=== PATIENT | female | born 1970 | race Caucasian/White ===

== ENCOUNTER 2018-03-07 18:41 | Inpatient (IN) ==
--- NOTE | 2018-03-07 19:20 | Emergency Department Note ---
Disposition Clinical Impression: Hx of heart valve replacement with mechanical valve, Subtherapeutic anticoagulation Disposition: Admitted As Inpatient Condition: Good Time of Disposition: 20:11 General Adult HPI - General Chief complaint: ED Recheck/Abnormal Lab/Rx Stated complaint: sent from doctor brittany Time Seen by Provider: 03/07/18 19:04 Source: patient Limitations: no limitations Nursing Notes Reviewed: Yes Vital Signs Reviewed: Yes - History of Present Illness HPI Narrative: Patient is a 47-year-old female who presents to the emergency department after finding out that her INR was 1.5. Patient has a history of 2 mechanical valves and the sales program coordinator felt that her INR was nontherapeutic and wanted her to be admitted to the hospital for further anticoagulation. Patient states that she is asymptomatic and just needs to be admitted to the hospital so she can get heparin and Coumadin. Pain Scale: 5 - Related Data Home Medications Medication Instructions Recorded Confirmed Aspirin [Adult Low Dose Aspirin EC] 81 mg PO DAILY 12/26/15 03/07/18 Baclofen 20 mg PO QID 12/26/15 03/07/18 Escitalopram [Lexapro] 10 mg PO QAM 12/26/15 03/07/18 Gabapentin [Neurontin] 900 mg PO HS 12/26/15 03/07/18 Hydromorphone HCl [Dilaudid] 2 mg PO QID PRN 12/26/15 03/07/18 LORazepam [Ativan] 1 mg PO QID 12/26/15 03/07/18 Melatonin [Melatin] 3 mg PO HS PRN 06/06/16 03/07/18 Amiodarone [Cordarone] 200 mg PO QAM 07/22/16 03/07/18 Warfarin [Coumadin] 5 mg PO SUSA 07/28/16 03/07/18 Diphenoxylate/Atropine [Lomotil 1 each PO QID PRN 08/18/16 03/07/18 2.5 mg/0.025 mg] Lurasidone [Latuda] 20 mg PO QPM 05/19/17 03/07/18 Bupropion HCl [Wellbutrin Xl] 300 mg PO DAILY 12/06/17 03/07/18 Dicyclomine [Bentyl] 10 mg PO QID PRN 12/06/17 03/07/18 Ondansetron [Zofran ODT] 8 mg SL Q4HR PRN 12/06/17 03/07/18 Albuterol Sulfate [Ventolin Hfa] 2 puff IH Q4H PRN 03/07/18 03/07/18 LORazepam [Ativan] 0.5 - 1 mg PO DAILY PRN 03/07/18 03/07/18 Pantoprazole Sodium [Protonix] 40 mg PO HS 03/07/18 03/07/18 Warfarin [Coumadin] 7.5 mg PO THFR 03/07/18 03/07/18 Warfarin [Coumadin] 10 mg PO MOTUWE 03/07/18 03/07/18 Previous Rx's Medication Instructions Recorded Metoprolol [Lopressor] 12.5 mg PO BID #30 tablet 08/20/16 Vitamin E Acid Succinate [Vitamin 1 tab PO BID #180 tab 10/20/16 E] Allergies Allergy/AdvReac Type Severity Reaction Status Date / Time levofloxacin [From Levaquin] AdvReac Intermediate See Verified 12/06/17 08:34 Comments clarithromycin [From Biaxin] AdvReac See Verified 03/07/18 20:19 Comments All systems ED: reviewed and negative except as stated. Cardiovascular: Denies: chest pain Respiratory: Denies: dyspnea Gastrointestinal: Denies: abdominal pain, nausea, vomiting Past Medical History - Past Medical History Medical history: Reports: other Surgical history: Reports: breast surgery, cholecystectomy, heart valve replacement Psychiatric history: Reports: anxiety, depression - Social History Smoking Status: Current every day smoker Smokeless Tobacco Status: No Alcohol use: Reports: none Drug use: Reports: none Physical Exam - General Limitations: no limitations General appearance: alert, in no apparent distress - Head Head exam: atraumatic, normocephalic - Eye Eye exam: Present: normal appearance, PERRL, EOMI - Neck Neck exam: Present: normal inspection, full ROM, trachea midline - Respiratory Respiratory exam: Present: normal lung sounds bilaterally. Absent: respiratory distress, wheezes - Cardiovascular Cardiovascular exam: Present: regular rate, normal rhythm, systolic murmur - Abdominal Exam Abdominal exam: Present: soft, Non-Tender, normal bowel sounds - Neurological Exam Neurological exam: Present: alert, oriented X3 - Psychiatric Psychiatric exam: Present: normal affect, normal mood - Skin Skin exam: Present: warm, dry, intact Course Vital Signs Temperature 98.4 F 04/09/18 18:54 Pulse Rate 83 03/07/18 18:54 Respiratory Rate 18 03/07/18 18:54 Blood Pressure 111/69 03/07/18 18:54 O2 Sat by Pulse Oximetry 97 03/07/18 18:54 Temperature 97.6 F 03/07/18 20:49 Pulse Rate 73 03/07/18 20:49 Respiratory Rate 17 03/07/18 20:49 Blood Pressure 101/69 03/07/18 20:49 O2 Sat by Pulse Oximetry 97 03/07/18 20:49 Oxygen Delivery Oxygen Delivery Room Air Medical Decision Making - MDM Narrative Medical decision making narrative: Due to the patient being sent over by the sales program coordinator for further anticoagulation and admission to the hospital we will order a CBC, BMP and coagulation studies. Once the coagulation studies have returned we will start the patient on heparin drip and admit her to the hospital for further evaluation and management. The patient's INR was 1.6 and will be started on IV heparin. The patient will be admitted to the hospital for further evaluation and management and to continue her heparin drip. We have called and spoke with the hospitalist and they have accepted the patient to their service. The patient be admitted to the hospital for further evaluation and management at this time. - Medical Records Medical records reviewed: Yes I reviewed the patient's medical records. - Lab Data Lab results reviewed: Yes I reviewed the patient's lab results. Result diagrams: 03/07/18 19:05 03/07/18 19:05 Lab Results 03/07/18 03/07/18 03/07/18 Range/Units 19:05 19:05 19:05 WBC 6.6 (4.3-11.1) K/mcL RBC 4.01 (3.82-4.97) M/mcL Hgb 13.1 (11.5-15.4) g/dL Hct 38.4 (35.3-44.9) % MCV 95.8 (83.0-100.0) fL MCH 32.7 (28.0-33.3) pg MCHC 34.1 (31.6-35.5) g/dL RDW 12.2 (11.5-14.5) % Plt Count 234 (140-400) K/mcL MPV 10.2 (9.4-12.4) fL Immature Gran % 0.2 (0-4) % Seg Neutrophils % 59.6 % Lymphocytes % 27.7 % Monocytes % 6.9 % Eosinophils % 4.7 % Basophils % 0.9 % Neutrophils # 3.9 (1.6-8.9) K/mcL Lymphocytes # 1.8 (0.6-4.6) K/mcL Monocytes # 0.5 (0.0-1.3) K/mcL Eosinophils # 0.3 (0.0-0.6) K/mcL Basophils # 0.1 (0.0-0.2) K/mcL PT 17.0 H (9.4-12.1) Seconds INR 1.6 APTT 33.4 (26.0-36.0) Seconds Sodium 136 (136-145) mEq/L Potassium 4.0 (3.5-5.1) mEq/L Chloride 105 (98-107) mEq/L Carbon Dioxide 25 (23-29) mEq/L BUN 11 (6-20) mg/dL Creatinine 0.93 (0.60-1.20) mg/dL Est GFR ( Amer) > 60 (> 60) Est GFR (Non-Af Amer) > 60 (> 60) BUN/Creatinine Ratio 12 (6-26) Glucose 102 (70-105) mg/dL Calculated Osmolality 282 (280-300) Calcium 8.9 (8.6-10.3) mg/dL Attestation Statement - Attestation Attestation: I examined this patient and my medical decision-making was reviewed with the Resident Physician. I agree with the documented findings, disposition and treatment plan as described except to the extent set forth below. Findings consistent with subtherapeutic INR. Patient will be heparinized, transition to Coumadin. This is done at the request of cardiology. The patient be admitted for anticoagulant management.
[2018-03-07 19:37] LABS: Basophils # 0.1 K/mcL (0.0-0.2); Basophils % 0.9 %; Eosinophils # 0.3 K/mcL (0.0-0.6); Eosinophils % 4.7 %; Hematocrit 38.4 % (35.3-44.9); Hemoglobin 13.1 g/dL (11.5-15.4); Immature Granulocytes % 0.2 % (0-4); Lymphocytes # 1.8 K/mcL (0.6-4.6); Lymphocytes % 27.7 %; Mean Corpuscular HGB Conc 34.1 g/dL (31.6-35.5); Mean Corpuscular Hemoglobin 32.7 pg (28.0-33.3); Mean Corpuscular Volume 95.8 fL (83.0-100.0); Mean Platelet Volume 10.2 fL (9.4-12.4); Monocytes # 0.5 K/mcL (0.0-1.3); Monocytes % 6.9 %; Neutrophils # 3.9 K/mcL (1.6-8.9); Platelet Count 234 K/mcL (140-400); Red Blood Count 4.01 M/mcL (3.82-4.97); Red Cell Distribution Width 12.2 % (11.5-14.5); Segmented Neutrophils % 59.6 %
[2018-03-07 19:43] LABS: INR 1.6
[2018-03-07 19:46] LABS: Activated Partial Thrombo Time 33.4 Seconds (26.0-36.0)
[2018-03-07 19:57] LABS: BUN/Creatinine Ratio 12 (6-26); Blood Urea Nitrogen 11 mg/dL (6-20); Calcium 8.9 mg/dL (8.6-10.3); Carbon Dioxide 25 mEq/L (23-29); Chloride 105 mEq/L (98-107); Glucose 102 mg/dL (70-105); Osmolality,Calculated 282 (280-300); Sodium 136 mEq/L (136-145); eGFR For African Americans > 60 (> 60); eGFR For Non-African Americans > 60 (> 60)
[2018-03-07] MEDS ORDERED: *HR* Heparin 5,000 UNIT/ML VIAL IVP PRN ×2 (19:58)
[2018-03-07] MEDS ORDERED: *HR* Heparin 5,000 UNIT/ML VIAL IVP ONE (19:58)
[2018-03-07] MEDS ORDERED: Diphenoxylate/Atropine 1 TAB TABLET PO PRN (20:51)
[2018-03-07] MEDS ORDERED: Melatonin 3 MG TABLET PO PRN (20:51)
[2018-03-07] MEDS ORDERED: Acetaminophen 325 MG TABLET PO PRN (20:54)
[2018-03-07] MEDS ORDERED: Naloxone 0.4 MG/ML INJ IVP PRN (20:54)
[2018-03-07] MEDS ORDERED: *HR* Warfarin 10 MG TABLET PO SCH ×2 (21:00→21:15)
--- NOTE | 2018-03-07 21:00 | Internal Med History&Physical ---
<Imelda Weinberg - Last Filed: 03/07/18 20:56> Date of Encounter: 03/07/18 Time of Encounter: 20:56 Internal Medicine - H&P: HPI Admitted From: Home Plans for Post Hospital Care: Home History of present illness: Patient is a 47-year-old female who presents to the emergency department after finding out that her INR was 1.5. Patient has a history of 2 mechanical valves and the foreign language interpreter felt that her INR was nontherapeutic and wanted her to be admitted to the hospital for further anticoagulation. Patient states that she is asymptomatic and just needs to be admitted to the hospital so she can get heparin and Coumadin. Past Med Surg Social Fam HX - Past Medical History Medical history: other Psychiatric history: anxiety, depression - Past Surgical History Surgical History: breast surgery, cholecystectomy, heart valve replacement - Social History Smoking Status: Current every day smoker Smokeless Tobacco Status: No Alcohol use: none Drug use: none - Family History Brother Hx Family Endocrine Disorder: Yes (diabeter type 2) Sister Hx Family Cardiac Disorders: Yes (CAD) Mother Hx Family Cardiac Disorders: Yes (HTN) Hx Family Respiratory Disorders: Yes (asthma) Internal Medicine - H&P: Meds Aspirin [Adult Low Dose Aspirin EC] 81 mg PO DAILY 12/26/15 [History] Baclofen 20 mg PO QID 12/26/15 [History] Escitalopram [Lexapro] 10 mg PO QAM 12/26/15 [History] Gabapentin [Neurontin] 900 mg PO HS 12/26/15 [History] Hydromorphone HCl [Dilaudid] 2 mg PO QID PRN 12/26/15 [History] LORazepam [Ativan] 1 mg PO QID 12/26/15 [History] Melatonin [Melatin] 3 mg PO HS PRN 06/06/16 [History] Amiodarone [Cordarone] 200 mg PO QAM 07/22/16 [History] Warfarin [Coumadin] 5 mg PO SUSA 07/28/16 [History] Diphenoxylate/Atropine [Lomotil 2.5 mg/0.025 mg] 1 each PO QID PRN 08/18/16 [ History] Metoprolol [Lopressor] 12.5 mg PO BID #30 tablet 08/20/16 [Rx] Vitamin E Acid Succinate [Vitamin E] 1 tab PO BID #180 tab 10/20/16 [Rx] Lurasidone [Latuda] 20 mg PO QPM 05/19/17 [History] Bupropion HCl [Wellbutrin Xl] 300 mg PO DAILY 12/06/17 [History] Dicyclomine [Bentyl] 10 mg PO QID PRN 12/06/17 [History] Ondansetron [Zofran ODT] 8 mg SL Q4HR PRN 12/06/17 [History] Albuterol Sulfate [Ventolin Hfa] 2 puff IH Q4H PRN 03/07/18 [History] LORazepam [Ativan] 0.5 - 1 mg PO DAILY PRN 03/07/18 [History] Pantoprazole Sodium [Protonix] 40 mg PO HS 03/07/18 [History] Warfarin [Coumadin] 7.5 mg PO THFR 03/07/18 [History] Warfarin [Coumadin] 10 mg PO MOTUWE 03/07/18 [History] 3 Allergy/AdvReac Type Severity Reaction Status Date / Time levofloxacin [From Levaquin] AdvReac Intermediate See Verified 12/06/17 08:34 Comments clarithromycin [From Biaxin] AdvReac See Verified 03/07/18 20:19 Comments All Systems PM: A 10-system review of systems was performed and is negative for pertinent findings except as documented above in the HPI. Review of systems: REVIEW OF SYSTEMS: CONSTITUTIONAL: No weight loss, fever, chills, weakness or fatigue. HEENT: Eyes: No visual loss, blurred vision, double vision or yellow sclerae. Ears, Nose, Throat: No hearing loss, sneezing, congestion, runny nose or sore throat. SKIN: No rash or itching. CARDIOVASCULAR: No chest pain, chest pressure or chest discomfort. No palpitations or edema. RESPIRATORY: No shortness of breath, cough or sputum. GASTROINTESTINAL: No anorexia, nausea, vomiting or diarrhea. No abdominal pain or blood. GENITOURINARY: No dysuria, urgency, or frequency. NEUROLOGICAL: No headache, dizziness, syncope, paralysis, ataxia, numbness or tingling in the extremities. No change in bowel or bladder control. MUSCULOSKELETAL: No muscle, back pain, joint pain or stiffness. HEMATOLOGIC: No anemia, bleeding or bruising. LYMPHATICS: No enlarged nodes. No history of splenectomy. PSYCHIATRIC: No history of depression or anxiety. ENDOCRINOLOGIC: No reports of sweating, cold or heat intolerance. No polyuria or polydipsia. - Constitutional Vitals: Temp Pulse Resp BP Pulse Ox 97.6 F 73 17 101/69 97 03/07/18 20:49 03/07/18 20:49 03/07/18 20:49 03/07/18 20:49 03/07/18 20:49 Exam: PHYSICAL EXAMINATION: GENERAL APPEARANCE: The patient is alert, oriented and in no acute distress. HEENT: Head is normocephalic. The sinuses are nontender. Pupils are equal and reactive. The nares are patent. Oropharynx clear without lesions. NECK: Supple without lymphadenopathy. HEART: Regular rate and rhythm. systolic murmur noted at LUNGS: No crackles or wheezes are heard. ABDOMEN: Soft, nontender, nondistended with good bowel sounds heard. Inguinal area is normal. EXTREMITIES: Without cyanosis, clubbing or edema. NEUROLOGICAL: Gross nonfocal. SKIN: Warm and dry without any rash. 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 - Hx of prosthetic valve and Marfan's disease. - Heparin gtt started, continue home coumadin. - consult pharmacy to dose Coumadin. - Time Spent With Patient Total time spent is greater than 50% in coordination of care (as documented) at patient's floor/unit and/or counseling patient: Greater than 35 minutes <Richard Del Angel - Last Filed: 03/07/18 23:32> Date of Encounter: 03/07/18 Internal Medicine - H&P: HPI History of present illness: Ms. Albert is a 47 year old female All Systems PM: A 10-system review of systems was performed and is negative for pertinent findings except as documented above in the HPI. - Constitutional Vitals: Temp Pulse Resp BP Pulse Ox 97.6 F 73 17 101/69 97 03/07/18 20:49 03/07/18 20:49 03/07/18 20:49 03/07/18 20:49 03/07/18 20:49 Internal Med - H&P Results - Labs CBC & Chem 7: 03/07/18 19:05 03/07/18 19:05 - Attending Attestation I have personally performed a face to face evaluation on this patient. I have reviewed and agree with the care plan provided by TONY Weinberg . History and Exam by me shows: Patient is a 47-year-old female with known PMH of Marfan's syndrome s/p mechanical valve x 2, who is on Coumadin for anticoagulation pt presents to the emergency department after finding out that her INR was 1.5. The foreign language interpreter felt that her INR was sub therapeutic and wanted her to be admitted to the hospital for further anticoagulation with heparin until she becomes therapeutic. She denied any CP / SOB Gen: A,A,O x 3 Chest: Diminished BS b/l Heart: S1S2 + RRR, 2/6 ESM a/p 1. Sub therapeutic INR 2. s/p Mechanical valve Started on standard dose heparin gtt bridge with Coumadin - Assessment and plan (1) Marfans syndrome Current Visit: No Status: Chronic (2) H/O aortic valve replacement Current Visit: No Status: Chronic (3) H/O mitral valve replacement with mechanical valve Current Visit: No Status: Chronic (4) Subtherapeutic anticoagulation Current Visit: Yes Status: Acute - Time Spent With Patient Total time spent is greater than 50% in coordination of care (as documented) at patient's floor/unit and/or counseling patient:
[2018-03-07] MEDS: *HR* LORazepam 1 MG TABLET PO SCH (21:59)
[2018-03-07] MEDS: *HR* HYDROmorphone 2 MG TABLET PO PRN (21:59)
[2018-03-07] MEDS: Baclofen 10 MG TABLET PO SCH (22:00)
[2018-03-07] MEDS: Gabapentin 300 MG CAPSULE PO SCH (22:04)
[2018-03-08 07:05] LABS: Activated Partial Thrombo Time 75.4 Seconds (26.0-36.0)
[2018-03-08] MEDS: *HR* Amiodarone 200 MG TABLET PO SCH (08:29)
[2018-03-08] MEDS: *HR* LORazepam 1 MG TABLET PO SCH ×4 (08:29→20:23)
[2018-03-08] MEDS: BuPROPion XL (24 HR) 150 MG TABLET PO SCH (08:30)
[2018-03-08] MEDS: Aspirin Enteric Coated 81 MG Tablet PO SCH (08:30)
[2018-03-08] MEDS: Baclofen 10 MG TABLET PO SCH ×4 (08:30→20:23)
[2018-03-08 08:39] LABS: INR 1.5; Prothrombin Time 16.8 Seconds (9.4-12.1)
[2018-03-08] MEDS ORDERED: Warfarin perPT PO PRN (12:07)
[2018-03-08] MEDS: Ondansetron ODT 4 MG TAB.RAPDIS SL PRN (12:14)
[2018-03-08] MEDS: *HR* HYDROmorphone 2 MG TABLET PO PRN ×2 (14:21→20:59)
--- NOTE | 2018-03-08 15:09 | Internal Med Progress Note ---
Date of Encounter: 03/08/18 Time of Encounter: 15:08 - Assessment and plan (1) Subtherapeutic anticoagulation Current Visit: Yes Status: Acute Assessment and plan: - Has been on coumadin for years and never been truly therapeutic. - Hx of prosthetic valve and Marfan's disease. - Heparin gtt started, continue home coumadin. - pharmacy to dose Coumadin. (2) H/O aortic valve replacement Current Visit: No Status: Chronic (3) H/O mitral valve replacement with mechanical valve Current Visit: No Status: Chronic (4) Marfans syndrome Current Visit: No Status: Chronic - Time Spent With Patient Total time spent is greater than 50% in coordination of care (as documented) at patient's floor/unit and/or counseling patient: - Subjective Interval history: She has no complaints. - Constitutional Vitals: Temp Pulse Resp BP Pulse Ox 98.3 F 61 17 129/73 96 03/08/18 07:50 03/08/18 07:50 03/08/18 07:50 03/08/18 07:50 03/08/18 07:50 General appearance: Present: A&O X 3 Exam: PHYSICAL EXAMINATION: GENERAL APPEARANCE: The patient is alert, oriented and in no acute distress. HEENT: Head is normocephalic. The sinuses are nontender. Pupils are equal and reactive. The nares are patent. Oropharynx clear without lesions. NECK: Supple without lymphadenopathy. HEART: systolic murmur at the left base. LUNGS: No crackles or wheezes are heard. ABDOMEN: Soft, nontender, nondistended with good bowel sounds heard. Inguinal area is normal. EXTREMITIES: Without cyanosis, clubbing or edema. NEUROLOGICAL: Gross nonfocal. SKIN: Warm and dry without any rash. Internal Medicine: Result - Labs CBC & Chem 7: 03/07/18 19:05 03/07/18 19:05 - ABG Interpretation ABG results: PT/INR, D-dimer PT 16.8 Seconds (9.4-12.1) H 03/08/18 06:28 Consult Discharge Plan - Plan Referrals: Dean Salazar DO [Primary Care Provider] -
[2018-03-08] MEDS: Lurasidone 20 MG TABLET PO SCH (17:08)
[2018-03-08] MEDS ORDERED: *HR* Warfarin 10 MG TABLET PO ONE (18:00)
[2018-03-08] MEDS: Gabapentin 300 MG CAPSULE PO SCH (20:23)
--- NOTE | 2018-03-08 23:50 | Electrocardiograph Report ---
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
[2018-03-08] MEDS: Heparin 25,000 UNIT/500 ML D5W 25,000 UNIT/500 ML BAG IVC SCH ×2 (23:51)
[2018-03-09 02:24] LABS: INR 1.3; Prothrombin Time 14.3 Seconds (9.4-12.1)
[2018-03-09 02:27] LABS: Activated Partial Thrombo Time 59.8 Seconds (26.0-36.0)
[2018-03-09] MEDS: *HR* HYDROmorphone 2 MG TABLET PO PRN ×3 (08:05→21:12)
[2018-03-09] MEDS: Aspirin Enteric Coated 81 MG Tablet PO SCH (08:05)
[2018-03-09] MEDS: *HR* LORazepam 1 MG TABLET PO SCH ×4 (08:05→21:12)
[2018-03-09] MEDS: *HR* Amiodarone 200 MG TABLET PO SCH (08:06)
[2018-03-09] MEDS: Baclofen 10 MG TABLET PO SCH ×4 (08:06→21:12)
[2018-03-09] MEDS: BuPROPion XL (24 HR) 150 MG TABLET PO SCH (08:06)
[2018-03-09] MEDS ORDERED: *HR* LORazepam 0.5 MG TABLET PO ONE (10:40)
--- NOTE | 2018-03-09 12:39 | Internal Med Progress Note ---
Date of Encounter: 03/09/18 Time of Encounter: 12:38 - Assessment and plan (1) Subtherapeutic anticoagulation Current Visit: Yes Status: Acute Assessment and plan: - Has been on coumadin for years and never been truly therapeutic. - Hx of prosthetic valve and Marfan's disease. - Heparin gtt started, continue home coumadin. INR 1.3 today. - pharmacy to dose Coumadin. (2) H/O aortic valve replacement Current Visit: No Status: Chronic (3) H/O mitral valve replacement with mechanical valve Current Visit: No Status: Chronic (4) Marfans syndrome Current Visit: No Status: Chronic - Time Spent With Patient Total time spent is greater than 50% in coordination of care (as documented) at patient's floor/unit and/or counseling patient: - Subjective Interval history: She has no complaints. - Constitutional Vitals: Temp Pulse Resp BP Pulse Ox 98.2 F 71 16 130/77 97 03/09/18 06:40 03/09/18 06:40 03/09/18 06:40 03/09/18 06:40 03/09/18 06:40 General appearance: Present: A&O X 3 Exam: PHYSICAL EXAMINATION: GENERAL APPEARANCE: The patient is alert, oriented and in no acute distress. HEENT: Head is normocephalic. The sinuses are nontender. Pupils are equal and reactive. The nares are patent. Oropharynx clear without lesions. NECK: Supple without lymphadenopathy. HEART: Regular rate and rhythm. LUNGS: No crackles or wheezes are heard. ABDOMEN: Soft, nontender, nondistended with good bowel sounds heard. Inguinal area is normal. EXTREMITIES: Without cyanosis, clubbing or edema. NEUROLOGICAL: Gross nonfocal. SKIN: Warm and dry without any rash. Internal Medicine: Result - Labs CBC & Chem 7: 03/07/18 19:05 03/07/18 19:05 - ABG Interpretation ABG results: PT/INR, D-dimer PT 14.3 Seconds (9.4-12.1) H 03/09/18 01:44 Consult Discharge Plan - Plan Referrals: Dean Salazar DO [Primary Care Provider] -
[2018-03-09] MEDS: Nicotine 14 MG PATCH.TD24 TD SCH (13:51)
[2018-03-09] MEDS: Ondansetron ODT 4 MG TAB.RAPDIS SL PRN (14:08)
[2018-03-09] MEDS: Lurasidone 20 MG TABLET PO SCH (17:20)
[2018-03-09] MEDS ORDERED: *HR* Warfarin 10 MG TABLET PO ONE (18:00)
[2018-03-09] MEDS ORDERED: *HR* LORazepam 0.5 MG TABLET PO PRN (18:09)
[2018-03-09] MEDS ORDERED: *HR* LORazepam 1 MG TABLET PO PRN (18:10)
[2018-03-09] MEDS: Gabapentin 300 MG CAPSULE PO SCH (21:12)
[2018-03-09] MEDS: Heparin 25,000 UNIT/500 ML D5W 25,000 UNIT/500 ML BAG IVC SCH (21:41)
[2018-03-10 03:24] LABS: INR 1.6; Prothrombin Time 17.3 Seconds (9.4-12.1)
[2018-03-10] MEDS: *HR* HYDROmorphone 2 MG TABLET PO PRN ×3 (08:41→19:50)
[2018-03-10] MEDS: BuPROPion XL (24 HR) 150 MG TABLET PO SCH (08:41)
[2018-03-10] MEDS: Nicotine 14 MG PATCH.TD24 TD SCH (08:41)
[2018-03-10] MEDS: *HR* LORazepam 1 MG TABLET PO SCH ×4 (08:42→19:46)
[2018-03-10] MEDS: *HR* Amiodarone 200 MG TABLET PO SCH (08:42)
[2018-03-10] MEDS: Aspirin Enteric Coated 81 MG Tablet PO SCH (08:42)
[2018-03-10] MEDS: Baclofen 10 MG TABLET PO SCH ×4 (08:42→19:44)
[2018-03-10] MEDS: Ondansetron ODT 4 MG TAB.RAPDIS SL PRN ×2 (09:15→13:44)
[2018-03-10] MEDS: *HR* LORazepam 0.5 MG TABLET PO PRN ×2 (09:15→21:31)
--- NOTE | 2018-03-10 11:01 | Event Note ---
Date of Encounter: 03/10/18 Time of Encounter: 10:45 - Cardiology Event Note Notification received from cardiology office indicating patient called our office from inpatient room with concerns of her Coumadin regimen and dosing-- patient well known to cardiology practice. Patient requested for cardiology to come talk with patient. No official consult noted from primary service. Patient reports had been taking Coumadin 7.5 mg by mouth daily at home and has received 10 mg past 3 evenings with pending dose of 7.5 mg pending today. Current INR 1.6. On IV heparin drip for bridging. Target INR 2.5-3.5. Discussed with [facility]-- Santy Noel, her primary pharmacist managing her outpatient INR as directed by Dr. Dalton-- he will connect with inpatient pharmacy to assist inpatient pharmacy with her dosing regimen since he is intimately aware of her INR history/trend. Anticipate may receive higher Coumadin dose this evening. All questions answered, patient verbalized understanding and very appreciative that cardiology aware of her status. Recs to continue IV Hep. gtt bridge until therapeutic. Please feel free to consult Cardiology if clinically warranted.
[2018-03-10] MEDS: Lurasidone 20 MG TABLET PO SCH (17:31)
--- NOTE | 2018-03-10 17:53 | Internal Med Progress Note ---
Date of Encounter: 03/10/18 Time of Encounter: 17:52 - Assessment and plan (1) Subtherapeutic anticoagulation Current Visit: Yes Status: Acute Assessment and plan: - Has been on coumadin for years and never been truly therapeutic. - Hx of prosthetic valve and Marfan's disease. - Heparin gtt started, continue home coumadin. INR 1.6 today. - pharmacy to dose Coumadin. (2) H/O aortic valve replacement Current Visit: No Status: Chronic (3) H/O mitral valve replacement with mechanical valve Current Visit: No Status: Chronic (4) Marfans syndrome Current Visit: No Status: Chronic - Time Spent With Patient Total time spent is greater than 50% in coordination of care (as documented) at patient's floor/unit and/or counseling patient: Greater than 35 minutes - Subjective Interval history: She has no complaints. - Constitutional Vitals: Temp Pulse Resp BP Pulse Ox 97.9 F 63 18 114/71 97 03/10/18 06:42 03/10/18 06:42 03/10/18 06:42 03/10/18 06:42 03/10/18 06:42 General appearance: Present: A&O X 3 Exam: PHYSICAL EXAMINATION: GENERAL APPEARANCE: The patient is alert, oriented and in no acute distress. HEENT: Head is normocephalic. The sinuses are nontender. Pupils are equal and reactive. The nares are patent. Oropharynx clear without lesions. NECK: Supple without lymphadenopathy. HEART: Regular rate and rhythm. LUNGS: No crackles or wheezes are heard. ABDOMEN: Soft, nontender, nondistended with good bowel sounds heard. Inguinal area is normal. EXTREMITIES: Without cyanosis, clubbing or edema. NEUROLOGICAL: Gross nonfocal. SKIN: Warm and dry without any rash. Internal Medicine: Result - Labs CBC & Chem 7: 03/07/18 19:05 03/07/18 19:05 - ABG Interpretation ABG results: PT/INR, D-dimer PT 17.3 Seconds (9.4-12.1) H 03/10/18 03:07 - VTE Documentation of Mechanical Device: Graduated compression elastic hosiery Consult Discharge Plan - Plan Referrals: Dean Salazar DO [Primary Care Provider] -
[2018-03-10] MEDS ORDERED: *HR* Warfarin 2.5 MG TABLET PO ONE (18:00)
[2018-03-10] MEDS ORDERED: *HR* Warfarin 7.5 MG TABLET PO SCH (18:00)
[2018-03-10] MEDS ORDERED: *HR* Warfarin 7.5 MG TABLET PO ONE (18:00)
[2018-03-10] MEDS ORDERED: *HR* Warfarin 10 MG TABLET PO ONE ×2 (18:00)
[2018-03-10] MEDS: Gabapentin 300 MG CAPSULE PO SCH (19:43)
[2018-03-10] MEDS: Heparin 25,000 UNIT/500 ML D5W 25,000 UNIT/500 ML BAG IVC SCH (19:58)
[2018-03-11 03:08] LABS: Prothrombin Time 21.9 Seconds (9.4-12.1)
[2018-03-11 07:26] VITALS: BP 117/72
[2018-03-11] MEDS: Nicotine 14 MG PATCH.TD24 TD SCH (07:52)
[2018-03-11] MEDS: Aspirin Enteric Coated 81 MG Tablet PO SCH (07:52)
[2018-03-11] MEDS: Baclofen 10 MG TABLET PO SCH (07:53)
[2018-03-11] MEDS: BuPROPion XL (24 HR) 150 MG TABLET PO SCH (07:53)
[2018-03-11] MEDS: *HR* LORazepam 1 MG TABLET PO SCH (07:53)
[2018-03-11] MEDS: *HR* Amiodarone 200 MG TABLET PO SCH (07:53)
--- NOTE | 2018-03-11 10:21 | Discharge Summary ---
- NOTES TO OUTPATIENT PROVIDER Notes to Outpatient Provider: f/u with Coumadin Clinic within one day. F/u with Cardiology within a week,. f/u with PCP within a week. Orders not resulted at time of discharge: Pending orders 03/12/18 03:35 PTT [Activated Partial Thrombo Time] [COAG] Timed 03/12/18 04:00 PT/INR [Prothrombin Time INR] [COAG] AM 0400 03/13/18 04:00 PT/INR [Prothrombin Time INR] [COAG] AM 0400 03/14/18 04:00 PT/INR [Prothrombin Time INR] [COAG] AM 0400 03/15/18 04:00 PT/INR [Prothrombin Time INR] [COAG] AM 0400 03/16/18 04:00 PT/INR [Prothrombin Time INR] [COAG] AM 0400 Date of Encounter: 03/11/18 Time of Encounter: 10:16 - Discharge Diagnosis (1) Subtherapeutic anticoagulation Priority: Primary Status: Acute (2) H/O aortic valve replacement Priority: Secondary Status: Chronic (3) H/O mitral valve replacement with mechanical valve Priority: Secondary Status: Chronic (4) Marfans syndrome Priority: Secondary Status: Chronic Hospital course: Ms. Albert is a 47 year old female with history of Marfan's syndrome, aortic valve replacement, and a mitral valve replacement who was on chronic anticoagulation presented with subtherapeutic INR. She was sent from her complementary health therapists's office. [employer] was concerned that her INR was subtherapeutic for a long time, although she usually follows up with Coumadin clinic. She was started on heparin drip and bridged to Coumadin. After 4 days of oral Coumadin, her INR was 2.0 today. He will be discharged home today. She will continue follow-up with Coumadin clinic as usual. He was instructed to take 10 mg Coumadin daily until dose further was adjusted based on daily INR. Discharge discussed with: patient Time spent discussing smoking cessation with patient: more than 10 minutes - Time Spent with Patient Total time spent providing and/or coordinating discharge services: Greater than 30 minutes - Discharge Medications Home Medications: Aspirin [Adult Low Dose Aspirin EC] 81 mg PO DAILY 12/26/15 [History] Baclofen 20 mg PO QID 12/26/15 [History] Escitalopram [Lexapro] 10 mg PO QAM 12/26/15 [History] Gabapentin [Neurontin] 900 mg PO HS 12/26/15 [History] Hydromorphone HCl [Dilaudid] 2 mg PO QID PRN 12/26/15 [History] LORazepam [Ativan] 1 mg PO QID 12/26/15 [History] Melatonin [Melatin] 3 mg PO HS PRN 06/06/16 [History] Amiodarone [Cordarone] 200 mg PO QAM 07/22/16 [History] Diphenoxylate/Atropine [Lomotil 2.5 mg/0.025 mg] 1 each PO QID PRN 08/18/16 [ History] Metoprolol [Lopressor] 12.5 mg PO BID #30 tablet 08/20/16 [Rx] Vitamin E Acid Succinate [Vitamin E] 1 tab PO BID #180 tab 10/20/16 [Rx] Lurasidone [Latuda] 20 mg PO QPM 05/19/17 [History] Bupropion HCl [Wellbutrin Xl] 300 mg PO DAILY 12/06/17 [History] Dicyclomine [Bentyl] 10 mg PO QID PRN 12/06/17 [History] Ondansetron [Zofran ODT] 8 mg SL Q4HR PRN 12/06/17 [History] Albuterol Sulfate [Ventolin Hfa] 2 puff IH Q4H PRN 03/07/18 [History] LORazepam [Ativan] 0.5 - 1 mg PO BID PRN 03/07/18 [History] Pantoprazole Sodium [Protonix] 40 mg PO HS 03/07/18 [History] Warfarin perPT [Coumadin perPT] 10 mg PO DAILY@1800 PRN #30 each 03/11/18 [Rx] Allergies/Adverse Reactions: 3 Allergy/AdvReac Type Severity Reaction Status Date / Time levofloxacin [From Levaquin] AdvReac Intermediate See Verified 12/06/17 08:34 Comments clarithromycin [From Biaxin] AdvReac See Verified 03/07/18 20:19 Comments Date of admission: 03/08/18 01:25 Primary care physician: Dean Salazar, Anticipated date of discharge: 03/11/18 - Constitutional Vitals: Temp Pulse Resp BP Pulse Ox 98.2 F 65 18 117/72 97 03/11/18 07:23 03/11/18 07:23 03/11/18 07:23 03/11/18 07:23 03/11/18 07:23 General appearance: Present: A&O X 3 Exam: PHYSICAL EXAMINATION: GENERAL APPEARANCE: The patient is alert, oriented and in no acute distress. HEENT: Head is normocephalic. The sinuses are nontender. Pupils are equal and reactive. The nares are patent. Oropharynx clear without lesions. NECK: Supple without lymphadenopathy. HEART: Regular rate and rhythm. LUNGS: No crackles or wheezes are heard. ABDOMEN: Soft, nontender, nondistended with good bowel sounds heard. Inguinal area is normal. EXTREMITIES: Without cyanosis, clubbing or edema. NEUROLOGICAL: Gross nonfocal. SKIN: Warm and dry without any rash. - Patient Status Disposition: Home, Self-Care Condition: Good Functional capacity at discharge: independent ambulation Overall status at discharge: patient is back to baseline - Discharge Instructions Follow Up With: Dean Salazar DO [Primary Care Provider] - - Diet and Activity Activity: increase activity as tolerated Diet: regular diet - VTE Documentation of Mechanical Device: Graduated compression elastic hosiery
[2018-03-12] MEDS ORDERED: *HR* Warfarin 5 MG TABLET PO SCH (18:00)
== END 2018-03-11 10:51 | disposition home or self-care (01) | DRG 948 ==
LOC: EMEROO 18:41 → 3BNU 18:41
PROVIDERS: ADMIT Family Medicine; ATTEND Registered Nurse

== ENCOUNTER 2018-10-17 17:38 | Inpatient (IN) ==
--- NOTE | 2018-10-17 18:14 | Emergency Department Note ---
Disposition Clinical Impression: Supratherapeutic INR, H/O mitral valve replacement with mechanical valve, H/O mechanical aortic valve replacement Atrial flutter Qualifiers: Atrial flutter type: unspecified Qualified Code(s): I48.92 - Unspecified atrial flutter Disposition: Admitted As Inpatient Condition: Good Time of Disposition: 19:57 General Adult HPI - General Chief complaint: ED Recheck/Abnormal Lab/Rx Stated complaint: Abnormal labs Time Seen by Provider: 10/17/18 17:57 Source: patient Mode of arrival: ambulatory Limitations: no limitations Nursing Notes Reviewed: Yes Vital Signs Reviewed: Yes - History of Present Illness HPI Narrative: Patient is a 48-year-old female that presents the emergency department due to being notified by her coagulation clinic that her INR was 1.5. Patient has a hi story of 2 mechanical valves. Reports that the aortic and mitral are both mechanical valves. She was scheduled to take 10 of Coumadin tonight and tomorrow and then 7.5 after that. Due to the patient having a subtherapeutic INR and having mechanical valves and felt that she should be admitted to the hospital for bridging with heparin. Patient states that she has had this multiple times in the past. Patient states that she has no pain, shortness of breath or any other symptoms at this time. Patient states that had it not been for her INR being low she would not have needed to come to the hospital. Patient states that she is otherwise at baseline. Pain Scale: 7 - Related Data Home Medications Medication Instructions Recorded Confirmed Aspirin [Adult Low Dose Aspirin EC] 81 mg PO DAILY 12/26/15 10/17/18 Baclofen 20 mg PO QID 12/26/15 10/17/18 Escitalopram [Lexapro] 10 mg PO QAM 12/26/15 10/17/18 Gabapentin [Neurontin] 900 mg PO HS 12/26/15 10/17/18 Hydromorphone HCl [Dilaudid] 2 mg PO QID PRN 12/26/15 10/17/18 LORazepam [Ativan] 1 mg PO QID 12/26/15 10/17/18 Melatonin [Melatin] 3 mg PO HS PRN 06/06/16 10/17/18 Lurasidone [Latuda] 20 mg PO QPM 05/19/17 10/17/18 Bupropion HCl [Wellbutrin Xl] 300 mg PO DAILY 12/06/17 10/17/18 Dicyclomine [Bentyl] 10 mg PO QID PRN 12/06/17 10/17/18 Ondansetron [Zofran ODT] 8 mg SL Q4HR PRN 12/06/17 10/17/18 Albuterol Sulfate [Ventolin Hfa] 2 puff IH Q4H PRN 03/07/18 10/17/18 Metoprolol [Lopressor] 12.5 mg PO BID 05/12/18 10/17/18 Omeprazole [PriLOSEC] 40 mg PO DAILY 07/07/18 10/17/18 Warfarin Sodium 5 mg PO FRSA 07/07/18 10/17/18 Warfarin Sodium 7.5 mg PO SUWETH 07/07/18 10/17/18 Gabapentin [Neurontin] 300 mg PO TID 10/17/18 10/17/18 Warfarin Sodium 10 mg PO MOTU 10/17/18 10/17/18 Previous Rx's Medication Instructions Recorded Vitamin E Acid Succinate [Vitamin 1 tab PO BID #180 tab 10/20/16 E] Allergies Allergy/AdvReac Type Severity Reaction Status Date / Time levofloxacin [From Levaquin] AdvReac Intermediate See Verified 12/06/17 08:34 Comments acetaminophen [From Vicodin] AdvReac Hives Verified 06/02/18 10:25 aripiprazole [From Abilify] AdvReac Hives Verified 06/02/18 10:25 clarithromycin [From Biaxin] AdvReac See Verified 03/07/18 20:19 Comments hydrocodone [From Vicodin] AdvReac Hives Verified 06/02/18 10:25 All systems ED: reviewed and negative except as stated. Constitutional: Reports: other. Denies: fever Cardiovascular: Denies: chest pain Respiratory: Denies: dyspnea Gastrointestinal: Denies: abdominal pain, nausea, vomiting Musculoskeletal: Reports: back pain (chronic ) Hematological/Lymphatic: Reports: other (Subtherapeutic INR.) Past Medical History - Past Medical History Medical history: Reports: atrial fibrillation, cancer, hypertension, other Surgical history: Reports: heart valve replacement Psychiatric history: Reports: anxiety, depression - Social History Smoking Status: Current every day smoker Smokeless Tobacco Status: No Alcohol use: Reports: none Drug use: Reports: none Physical Exam - General Limitations: no limitations General appearance: alert, in no apparent distress - Head Head exam: atraumatic, normocephalic - Eye Eye exam: Present: normal appearance, EOMI - Neck Neck exam: Present: normal inspection, full ROM, trachea midline - Respiratory Respiratory exam: Present: normal lung sounds bilaterally. Absent: respiratory distress, wheezes - Cardiovascular Cardiovascular exam: Present: regular rate, normal rhythm, systolic murmur, +S1, +S2 - Abdominal Exam Abdominal exam: Present: soft, Non-Tender, normal bowel sounds - Neurological Exam Neurological exam: Present: alert, oriented X3 - Psychiatric Psychiatric exam: Present: normal affect, normal mood - Skin Skin exam: Present: warm, dry, intact Course Vital Signs Temperature 98.0 F 10/17/18 17:43 Pulse Rate 94 10/17/18 17:43 Respiratory Rate 16 10/17/18 17:43 Blood Pressure 135/88 10/17/18 17:43 O2 Sat by Pulse Oximetry 98 10/17/18 17:43 Temperature 98.0 F 10/17/18 17:57 Pulse Rate 80 10/17/18 18:15 Respiratory Rate 16 10/17/18 18:15 Blood Pressure 122/74 10/17/18 18:15 O2 Sat by Pulse Oximetry 97 10/17/18 18:15 Oxygen Delivery Oxygen Delivery Room Air Medical Decision Making - [facility] Narrative Medical decision making narrative: Due the patient presented to the emergency department with a subtherapeutic INR and a history of mechanical valves we will obtain laboratory testing and the patient will need to be admitted to the hospital for bridging of her Coumadin. The patient INR needs to be 2.5-3.5 to be therapeutic with mechanical valve. Patient's repeat INR was 1.7 here in the emergency department. I did call and speak to the on-call supervisor meter shop Dr. Dalton he recommended that the patient be started on full dose heparin due to the patient having to previous mechanical valves 1 which has thrombosed due to the patient's Coumadin being held for a procedure. This required a replacement of the valve. Patient also has a history of Marfan's disease. Patient's EKG showed possible atrial flutter with variable block. The patient will need to be admitted to the hospital for further evaluation and management. A consult to cardiology will be placed. I called spoke the admitting hospitalist Dr. Taylor and he has accepted the patient to their service. Patient will be admitted to the hospital this time for further evaluation and management. - Medical Records Medical records reviewed: Yes I reviewed the patient's medical records. - Lab Data Lab results reviewed: Yes I reviewed the patient's lab results. Result diagrams: 10/17/18 18:20 10/17/18 18:20 - Radiology Data Radiology results reviewed: Yes I reviewed the patient's radiology results. - EKG Data EKG #1 EKG attestation: Yes I reviewed and interpreted this EKG. EKG results narrative: EKG shows atrial flutter with variable block. This is a rate of 86 bpm, QRS duration 149, QTC of 581. There is no evidence of STEMI on EKG. this was compared to previous on 07/07/18.
[2018-10-17] MEDS ORDERED: Nicotine 21 MG PATCH.TD24 TD STA (18:42)
[2018-10-17 18:47] LABS: Basophils # 0.1 K/mcL (0.0-0.2); Basophils % 0.7 %; Eosinophils # 0.2 K/mcL (0.0-0.6); Eosinophils % 2.9 %; Hematocrit 40.3 % (35.3-44.9); Hemoglobin 13.4 g/dL (11.5-15.4); Immature Granulocytes % 0.4 % (0-4); Lymphocytes # 2.5 K/mcL (0.6-4.6); Lymphocytes % 30.3 %; Mean Corpuscular HGB Conc 33.3 g/dL (31.6-35.5); Mean Corpuscular Hemoglobin 29.5 pg (28.0-33.3); Mean Corpuscular Volume 88.6 fL (83.0-100.0); Mean Platelet Volume 10.2 fL (9.4-12.4); Monocytes # 0.6 K/mcL (0.0-1.3); Monocytes % 6.8 %; Neutrophils # 4.9 K/mcL (1.6-8.9); Platelet Count 219 K/mcL (140-400); Red Blood Count 4.55 M/mcL (3.82-4.97); Red Cell Distribution Width 13.9 % (11.5-14.5); Segmented Neutrophils % 58.9 %
[2018-10-17 18:54] LABS: INR 1.7
[2018-10-17 18:56] LABS: Activated Partial Thrombo Time 36.3 Seconds (26.0-36.0); BUN/Creatinine Ratio 9 (6-26); Blood Urea Nitrogen 9 mg/dL (6-20); Calcium 9.1 mg/dL (8.6-10.3); Carbon Dioxide 26 mEq/L (23-29); Chloride 103 mEq/L (98-107); Glucose 68 mg/dL (70-105); Osmolality,Calculated 277 (280-300); Potassium 4.3 mEq/L (3.5-5.1); Sodium 135 mEq/L (136-145); eGFR For Non-African Americans > 60 (> 60)
--- NOTE | 2018-10-17 19:35 | Emergency Department Note ---
Disposition Clinical Impression: Atrial flutter, Supratherapeutic INR, H/O mitral valve replacement with mechanical valve, H/O mechanical aortic valve replacement Disposition: Admitted As Inpatient Condition: Good General Adult HPI - General Chief complaint: ED Recheck/Abnormal Lab/Rx Stated complaint: Abnormal labs Time Seen by Provider: 10/17/18 17:57 Source: patient Mode of arrival: ambulatory Limitations: no limitations - History of Present Illness Pain Scale: 7 - Related Data Home Medications Medication Instructions Recorded Confirmed Aspirin [Adult Low Dose Aspirin EC] 81 mg PO DAILY 12/26/15 10/17/18 Baclofen 20 mg PO QID 12/26/15 10/17/18 Escitalopram [Lexapro] 10 mg PO QAM 12/26/15 10/17/18 Gabapentin [Neurontin] 900 mg PO HS 12/26/15 10/17/18 Hydromorphone HCl [Dilaudid] 2 mg PO QID PRN 12/26/15 10/17/18 LORazepam [Ativan] 1 mg PO QID 12/26/15 10/17/18 Melatonin [Melatin] 3 mg PO HS PRN 06/06/16 10/17/18 Lurasidone [Latuda] 20 mg PO QPM 05/19/17 10/17/18 Bupropion HCl [Wellbutrin Xl] 300 mg PO DAILY 12/06/17 10/17/18 Dicyclomine [Bentyl] 10 mg PO QID PRN 12/06/17 10/17/18 Ondansetron [Zofran ODT] 8 mg SL Q4HR PRN 12/06/17 10/17/18 Albuterol Sulfate [Ventolin Hfa] 2 puff IH Q4H PRN 03/07/18 10/17/18 Metoprolol [Lopressor] 12.5 mg PO BID 05/12/18 10/17/18 Omeprazole [PriLOSEC] 40 mg PO DAILY 07/07/18 10/17/18 Warfarin Sodium 5 mg PO FRSA 07/07/18 10/17/18 Warfarin Sodium 7.5 mg PO SUWETH 07/07/18 10/17/18 Gabapentin [Neurontin] 300 mg PO TID 10/17/18 10/17/18 Warfarin Sodium 10 mg PO MOTU 10/17/18 10/17/18 Previous Rx's Medication Instructions Recorded Vitamin E Acid Succinate [Vitamin 1 tab PO BID #180 tab 10/20/16 E] Allergies Allergy/AdvReac Type Severity Reaction Status Date / Time levofloxacin [From Levaquin] AdvReac Intermediate See Verified 12/06/17 08:34 Comments acetaminophen [From Vicodin] AdvReac Hives Verified 06/02/18 10:25 aripiprazole [From Abilify] AdvReac Hives Verified 06/02/18 10:25 clarithromycin [From Biaxin] AdvReac See Verified 03/07/18 20:19 Comments hydrocodone [From Vicodin] AdvReac Hives Verified 06/02/18 10:25 Constitutional: Reports: other. Denies: fever Cardiovascular: Denies: chest pain Respiratory: Denies: dyspnea Gastrointestinal: Denies: abdominal pain, nausea, vomiting Musculoskeletal: Reports: back pain (chronic ) Hematological/Lymphatic: Reports: other (Subtherapeutic INR.) Past Medical History - Past Medical History Medical history: Reports: atrial fibrillation, cancer, hypertension, other Surgical history: Reports: heart valve replacement Psychiatric history: Reports: anxiety, depression - Social History Smoking Status: Current every day smoker Smokeless Tobacco Status: No Alcohol use: Reports: none Drug use: Reports: none Physical Exam - General Limitations: no limitations General appearance: alert, in no apparent distress Course Vital Signs Temperature 98.0 F 10/17/18 17:43 Pulse Rate 94 10/17/18 17:43 Respiratory Rate 16 10/17/18 17:43 Blood Pressure 135/88 10/17/18 17:43 O2 Sat by Pulse Oximetry 98 10/17/18 17:43 Temperature 98.2 F 10/17/18 21:15 Pulse Rate 94 10/17/18 21:15 Respiratory Rate 16 10/17/18 21:15 Blood Pressure 123/84 10/17/18 21:15 O2 Sat by Pulse Oximetry 98 10/17/18 21:15 Oxygen Delivery Oxygen Delivery Room Air Medical Decision Making - Lab Data Result diagrams: 10/17/18 18:20 10/17/18 18:20 Lab Results 10/17/18 10/17/18 10/17/18 Range/Units 18:20 18:20 18:20 WBC 8.3 (4.3-11.1) K/mcL RBC 4.55 (3.82-4.97) M/mcL Hgb 13.4 (11.5-15.4) g/dL Hct 40.3 (35.3-44.9) % MCV 88.6 (83.0-100.0) fL MCH 29.5 (28.0-33.3) pg MCHC 33.3 (31.6-35.5) g/dL RDW 13.9 (11.5-14.5) % Plt Count 219 (140-400) K/mcL MPV 10.2 (9.4-12.4) fL Immature Gran % 0.4 (0-4) % Seg Neutrophils % 58.9 % Lymphocytes % 30.3 % Monocytes % 6.8 % Eosinophils % 2.9 % Basophils % 0.7 % Neutrophils # 4.9 (1.6-8.9) K/mcL Lymphocytes # 2.5 (0.6-4.6) K/mcL Monocytes # 0.6 (0.0-1.3) K/mcL Eosinophils # 0.2 (0.0-0.6) K/mcL Basophils # 0.1 (0.0-0.2) K/mcL PT 19.0 H (9.4-12.1) Seconds INR 1.7 APTT 36.3 H (26.0-36.0) Seconds Heparin Anti-Xa, Unfract (0.30-0.70) IU/mL Sodium 135 L (136-145) mEq/L Potassium 4.3 (3.5-5.1) mEq/L Chloride 103 (98-107) mEq/L Carbon Dioxide 26 (23-29) mEq/L BUN 9 (6-20) mg/dL Creatinine 0.98 (0.60-1.20) mg/dL Est GFR ( Amer) > 60 (> 60) Est GFR (Non-Af Amer) > 60 (> 60) BUN/Creatinine Ratio 9 (6-26) Glucose 68 L (70-105) mg/dL Calculated Osmolality 277 L (280-300) Calcium 9.1 (8.6-10.3) mg/dL 10/17/18 Range/Units 19:51 WBC (4.3-11.1) K/mcL RBC (3.82-4.97) M/mcL Hgb (11.5-15.4) g/dL Hct (35.3-44.9) % MCV (83.0-100.0) fL MCH (28.0-33.3) pg MCHC (31.6-35.5) g/dL RDW (11.5-14.5) % Plt Count (140-400) K/mcL MPV (9.4-12.4) fL Immature Gran % (0-4) % Seg Neutrophils % % Lymphocytes % % Monocytes % % Eosinophils % % Basophils % % Neutrophils # (1.6-8.9) K/mcL Lymphocytes # (0.6-4.6) K/mcL Monocytes # (0.0-1.3) K/mcL Eosinophils # (0.0-0.6) K/mcL Basophils # (0.0-0.2) K/mcL PT (9.4-12.1) Seconds INR APTT (26.0-36.0) Seconds Heparin Anti-Xa, Unfract 0.03 L (0.30-0.70) IU/mL Sodium (136-145) mEq/L Potassium (3.5-5.1) mEq/L Chloride (98-107) mEq/L Carbon Dioxide (23-29) mEq/L BUN (6-20) mg/dL Creatinine (0.60-1.20) mg/dL Est GFR ( Amer) (> 60) Est GFR (Non-Af Amer) (> 60) BUN/Creatinine Ratio (6-26) Glucose (70-105) mg/dL Calculated Osmolality (280-300) Calcium (8.6-10.3) mg/dL Critical Care Time Critical Care Time: Yes Total Critical Care Time: 35 Attestation: Critical care performed: Time is exclusive of separately billable procedures. Time includes: direct patient care, patient reassessment, coordination of patient care, interpretation of data (laboratory data, radiology data, and respiratory data), review of patient's medical records, medical consultation and documentation of patient care. Procedures included in critical care time: Procedures excluded from critical care time: Attestation Statement - Attestation Attestation: I examined this patient and my medical decision-making was reviewed with the Resident Physician. I agree with the documented findings, disposition and treatment plan as described except to the extent set forth below. Patient presents to the ED with a low INR. Patient was sent in for an INR 1.7. She has a mechanical valve. She denies any change in diet. States she has not been ill. Denies vomiting diarrhea. She is unclear why her INR is low. She is in no distress on examination. Heart regular rate and rhythm. Plan. Repeat labs. Likely start heparin if INR is low. INR 1.7. Patient has a history of clotting off her mechanical valve when her INR was low. Starting heparin. We will admit.
[2018-10-17] MEDS ORDERED: *HR* Heparin 5,000 UNIT/ML VIAL IVP PRN ×2 (19:40)
[2018-10-17] MEDS ORDERED: *HR* Heparin 5,000 UNIT/ML VIAL IVP ONE (19:40)
[2018-10-17] MEDS ORDERED: Acetaminophen 325 MG TABLET PO PRN (20:37)
[2018-10-17] MEDS ORDERED: Naloxone 0.4 MG/ML INJ IVP PRN (20:37)
--- NOTE | 2018-10-17 20:37 | Internal Med History&Physical ---
Date of Encounter: 10/17/18 Time of Encounter: 20:32 Internal Medicine - H&P: HPI Chief complaint: Abnormal labs Admitted From: Emergency Dept Plans for Post Hospital Care: Home History of present illness: Ms. Albert is a 48 year old female with past medical history of Marfan syndrome status post left upper lobectomy secondary to blebs, mechanical aortic valve, atrial fibrillation/flutter, mechanical aortic and mitral valve, who was notified by the coag clinic as here INR was 1.5. On repeat in the ED it was 1.7. Rest of labs were mostly unremarkable except for glucose 68. She takes coumadin. Dr. Dalton was contacted and was aware of the patient. He wanted her admitted to be bridged on coumadin as she has had a history of thromobsed valves in the past with subtherapeutic INR. No other symptoms such as fever, chills, headache, blurry vision, dizziness, chest pain, shortness of breath, abdominal pain, diarrhea, constipation, urinary symptoms, or neurological symptoms. EKG in the ED showed atrial flutter with rate in the 80s. She was started on heparin drip in the ED Past Med Surg Social Fam HX - Past Medical History Medical history: atrial fibrillation, cancer, hypertension, other Additional medical history: marfan's syndrome, mitral valve prolapse, cardiac ablations 07/05/18 Psychiatric history: anxiety, depression - Past Surgical History Surgical History: heart valve replacement Additional surgical history: aortic valve mitral valve lobectomy left lung - Social History Smoking Status: Current every day smoker Smokeless Tobacco Status: No Alcohol use: none Drug use: none - Family History Father Living Status: Hx Family Cardiac Disorders: Yes Hx Family Neurologic Disorders: Yes (parkensons) Brother Hx Family Endocrine Disorder: Yes (diabeter type 2) Sister Hx Family Cardiac Disorders: Yes (CAD) Mother Hx Family Cardiac Disorders: Yes (HTN) Hx Family Respiratory Disorders: Yes (asthma) Internal Medicine - H&P: Meds Aspirin [Adult Low Dose Aspirin EC] 81 mg PO DAILY 12/26/15 [History] Baclofen 20 mg PO QID 12/26/15 [History] Escitalopram [Lexapro] 10 mg PO QAM 12/26/15 [History] Gabapentin [Neurontin] 900 mg PO HS 12/26/15 [History] Hydromorphone HCl [Dilaudid] 2 mg PO QID PRN 12/26/15 [History] LORazepam [Ativan] 1 mg PO QID 12/26/15 [History] Melatonin [Melatin] 3 mg PO HS PRN 06/06/16 [History] Vitamin E Acid Succinate [Vitamin E] 1 tab PO BID #180 tab 10/20/16 [Rx] Lurasidone [Latuda] 20 mg PO QPM 05/19/17 [History] Bupropion HCl [Wellbutrin Xl] 300 mg PO DAILY 12/06/17 [History] Dicyclomine [Bentyl] 10 mg PO QID PRN 12/06/17 [History] Ondansetron [Zofran ODT] 8 mg SL Q4HR PRN 12/06/17 [History] Albuterol Sulfate [Ventolin Hfa] 2 puff IH Q4H PRN 03/07/18 [History] Metoprolol [Lopressor] 25 mg PO BID 05/12/18 [History] Omeprazole [PriLOSEC] 40 mg PO DAILY 07/07/18 [History] Warfarin Sodium 2.5 mg PO THSA 07/07/18 [History] Warfarin Sodium 5 mg PO [id number] 07/07/18 [History] Gabapentin [Neurontin] 300 mg PO TID 10/17/18 [History] Warfarin Sodium 10 mg PO MOTU 10/17/18 [History] Allergy/AdvReac Type Severity Reaction Status Date / Time levofloxacin [From Levaquin] AdvReac Intermediate See Verified 12/06/17 08:34 Comments acetaminophen [From Vicodin] AdvReac Hives Verified 06/02/18 10:25 aripiprazole [From Abilify] AdvReac Hives Verified 06/02/18 10:25 clarithromycin [From Biaxin] AdvReac See Verified 03/07/18 20:19 Comments hydrocodone [From Vicodin] AdvReac Hives Verified 06/02/18 10:25 All Systems PM: A 10-system review of systems was performed and is negative for pertinent findings except as documented above in the HPI. Review of systems: All systems reviewed are negative except for as mentioned above - Constitutional Vitals: Temp Pulse Resp BP Pulse Ox 98.0 F 80 16 122/74 97 10/17/18 17:57 10/17/18 18:15 10/17/18 18:15 10/17/18 18:15 10/17/18 18:15 Exam: GEN: NAD HEENT: AT, NC, No cyanosis, oral mucosa is moist, No JVD Lymphatics: No lymphadenoapthy Eyes: Extrocular muscles intact, anicteric CVS:RRR. S1, S2, No m/r/g RESP: CTAB ABD: Soft, NT, ND, +BS EXT: No edema, No rashes, 2+ DP NEURO: Nonfocal, CN II-XII intact, No focal motor or sensory deficits Psych: Cooperative, Not anxious or depressed Internal Med - H&P Results - Labs CBC & Chem 7: 10/17/18 18:20 10/17/18 18:20 Labs: Short CBC 10/17/18 Range/Units 18:20 WBC 8.3 (4.3-11.1) K/mcL Hgb 13.4 (11.5-15.4) g/dL Hct 40.3 (35.3-44.9) % Plt Count 219 (140-400) K/mcL Neutrophils # 4.9 (1.6-8.9) K/mcL BMP 10/17/18 18:20 Sodium 135 L Potassium 4.3 Chloride 103 Carbon Dioxide 26 BUN 9 Creatinine 0.98 Glucose 68 L Calcium 9.1 - Assessment and plan (1) H/O mitral valve replacement with mechanical valve Current Visit: Yes Status: Chronic Assessment and plan: subtherapeutic INR. Will continue heparin drip as advised by cardiology. They are consulted. Coumadin bridging as well. (2) H/O mechanical aortic valve replacement Current Visit: Yes Status: Acute Assessment and plan: as above (3) GERD (gastroesophageal reflux disease) Current Visit: Yes Status: Acute Assessment and plan: c/w home PPI Qualifiers: Esophagitis presence: without esophagitis Qualified Code(s): K21.9 - Gastro-esophageal reflux disease without esophagitis (4) Atrial flutter Current Visit: Yes Status: Acute Assessment and plan: c/w BB. currently on heparin drip and at home on coumadin Qualifiers: Atrial flutter type: unspecified Qualified Code(s): I48.92 - Unspecified atrial flutter (5) Marfans syndrome Current Visit: No Status: Chronic Assessment and plan: chronic (6) DVT prophylaxis Current Visit: No Status: Acute Assessment and plan: on heparin drip currently - Time Spent With Patient Total time spent is greater than 50% in coordination of care (as documented) at patient's floor/unit and/or counseling patient:
[2018-10-17] MEDS: Heparin 25,000 UNIT/500 ML D5W 25,000 UNIT/500 ML BAG IVC SCH (20:42)
[2018-10-17] MEDS ORDERED: Melatonin 3 MG TABLET PO PRN (20:45)
[2018-10-17] MEDS ORDERED: Gabapentin 300 MG CAPSULE PO SCH (21:00)
[2018-10-17] MEDS: *HR* HYDROmorphone 2 MG TABLET PO PRN (22:01)
[2018-10-17] MEDS: *HR* LORazepam 1 MG TABLET PO SCH (22:02)
[2018-10-17] MEDS: Baclofen 10 MG TABLET PO SCH (22:02)
[2018-10-17] MEDS ORDERED: Gabapentin 300 MG CAPSULE PO ONE (22:30)
[2018-10-17] MEDS ORDERED: *HR* Warfarin 5 MG TABLET PO ONE (22:30)
[2018-10-17] MEDS: Lurasidone 20 MG TABLET PO SCH (22:39)
[2018-10-18 03:43] LABS: Basophils # 0.1 K/mcL (0.0-0.2); Basophils % 0.8 %; Eosinophils # 0.3 K/mcL (0.0-0.6); Eosinophils % 3.9 %; Hematocrit 38.9 % (35.3-44.9); Hemoglobin 12.9 g/dL (11.5-15.4); Immature Granulocytes % 0.3 % (0-4); Lymphocytes # 2.3 K/mcL (0.6-4.6); Lymphocytes % 36.2 %; Mean Corpuscular HGB Conc 33.2 g/dL (31.6-35.5); Mean Corpuscular Hemoglobin 29.8 pg (28.0-33.3); Mean Corpuscular Volume 89.8 fL (83.0-100.0); Mean Platelet Volume 10.1 fL (9.4-12.4); Monocytes # 0.4 K/mcL (0.0-1.3); Monocytes % 6.8 %; Neutrophils # 3.3 K/mcL (1.6-8.9); Nucleated Red Blood Cells 0.3 /100 WBC (0); Platelet Count 174 K/mcL (140-400); Red Blood Count 4.33 M/mcL (3.82-4.97); Red Cell Distribution Width 13.9 % (11.5-14.5)
[2018-10-18 03:51] LABS: INR 1.9; Prothrombin Time 21.2 Seconds (9.4-12.1)
[2018-10-18 03:59] LABS: BUN/Creatinine Ratio 10 (6-26); Blood Urea Nitrogen 9 mg/dL (6-20); Calcium 8.9 mg/dL (8.6-10.3); Carbon Dioxide 28 mEq/L (23-29); Chloride 105 mEq/L (98-107); Glucose 91 mg/dL (70-105); Osmolality,Calculated 284 (280-300); Potassium 4.2 mEq/L (3.5-5.1); Sodium 138 mEq/L (136-145); eGFR For Non-African Americans > 60 (> 60)
--- NOTE | 2018-10-18 09:22 | Event Note ---
Date of Encounter: 10/18/18 Time of Encounter: 09:20 - Cardiology Event Note INR 1.9, target 2.5-3.5-- has mechanical arotic and mitral valves, on IV Hep. gtt for bridging (discussed with Dr. Oliva, recs for Hep. bridging, no Lovenox). Patient aware of plan. Discussed with primary service, please consult if needed.
[2018-10-18] MEDS: Baclofen 10 MG TABLET PO SCH ×4 (09:56→20:25)
[2018-10-18] MEDS: *HR* LORazepam 1 MG TABLET PO SCH ×4 (09:56→20:26)
[2018-10-18] MEDS: Gabapentin 300 MG CAPSULE PO SCH ×3 (09:56→16:28)
[2018-10-18] MEDS: BuPROPion XL (24 HR) 150 MG TABLET PO SCH (09:57)
[2018-10-18] MEDS: *HR* HYDROmorphone 2 MG TABLET PO PRN ×2 (10:04→16:28)
--- NOTE | 2018-10-18 10:10 | Internal Med Progress Note ---
Hospitalist Progress Note - Encounter Date of Encounter: 10/18/18 Time of Encounter: 10:09 - Subjective Interval History: Patient was seen and examined at bedside currently only complains of back pain which she states is chronic denies any chest pain or shortness of breath - Exam Vitals: Temp Pulse Resp BP Pulse Ox 97.6 F 69 16 125/76 97 10/18/18 07:12 10/18/18 07:12 10/18/18 07:12 10/18/18 07:12 10/18/18 07:12 Exam: GEN: NAD HEENT: AT, NC, No cyanosis, oral mucosa is moist, No JVD Lymphatics: No lymphadenoapthy Eyes: Extrocular muscles intact, anicteric CVS:RRR. 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 Will continue heparin drip as advised by cardiology. They are consulted. Coumadin bridging as well 10/18 Today INR 1.9 goal INR is 2.5-3.5 we will continue with heparin drip and bridged with Coumadin. Patient will follow-up with Coumadin clinic she does have an appointment Wednesday 1:30 Coumadin clinic (3) Atrial flutter Current Visit: Yes Status: Acute Assessment and Plan: c/w BB. currently on heparin drip and at home on coumadin 10/18 Rate is controlled we will continue with heparin drip, home Coumadin as well as beta gina (4) DVT prophylaxis Current Visit: No Status: Acute Assessment and Plan: on heparin drip currently (5) H/O mechanical aortic valve replacement Current Visit: Yes Status: Acute Assessment and Plan: as above (6) GERD (gastroesophageal reflux disease) Current Visit: Yes Status: Acute Assessment and Plan: c/w home PPI - Time Spent with Patient Total time spent is greater than 50% in coordination of care (as documented) at patient's floor/unit and/or counseling patient: Internal Medicine: Result - Labs CBC & Chem 7: 10/18/18 03:18 10/18/18 03:18 Labs: Short CBC 10/17/18 10/18/18 Range/Units 18:20 03:18 WBC 8.3 6.4 (4.3-11.1) K/mcL Hgb 13.4 12.9 (11.5-15.4) g/dL Hct 40.3 38.9 (35.3-44.9) % Plt Count 219 174 (140-400) K/mcL Neutrophils # 4.9 3.3 (1.6-8.9) K/mcL BMP 10/17/18 10/18/18 18:20 03:18 Sodium 135 L 138 Potassium 4.3 4.2 Chloride 103 105 Carbon Dioxide 26 28 BUN 9 9 Creatinine 0.98 0.93 Glucose 68 L 91 Calcium 9.1 8.9 - ABG Interpretation ABG results: PT/INR, D-dimer PT 21.2 Seconds (9.4-12.1) H 10/18/18 03:18 Consult Discharge Plan - Plan Referrals: Dean Salazar DO [Primary Care Provider] - 10/25/18 2:30 pm () Sunshine Rosario MD [Partnered Physician] - 11/16/18 2:50 pm (3) Atrial flutter Qualifiers: Atrial flutter type: unspecified Qualified Code(s): I48.92 - Unspecified atrial flutter (6) GERD (gastroesophageal reflux disease) Qualifiers: Esophagitis presence: without esophagitis Qualified Code(s): K21.9 - Gastro- esophageal reflux disease without esophagitis
[2018-10-18] MEDS: Aspirin Enteric Coated 81 MG Tablet PO SCH (13:16)
[2018-10-18] MEDS ORDERED: Nicotine 21 MG PATCH.TD24 TD STA (13:55)
--- NOTE | 2018-10-18 17:23 | Electrocardiograph Report ---
[address] [place] [address] Test Date: 2018-10-17 Pat Name: Teresa Albert Department: EXAMC1 Room: 3B48 Gender: F [employer] Operator: : [id number] Requested By: Carlos Taylor Order Number: [id number] Reading MD: Marsha Oliva Measurements Intervals [place] Rate: 86 P: FL: QRS: 96 QRSD: 149 T: 91 QT: 494 QTc: 581 Interpretive Statements Possibly Atrial flutter Nonspecific intraventricular conduction delay Electronically Signed On 10-18-2018 17:21:49 EST by Marsha Oliva
[2018-10-18] MEDS: Heparin 25,000 UNIT/500 ML D5W 25,000 UNIT/500 ML BAG IVC SCH (17:47)
[2018-10-18] MEDS ORDERED: Lurasidone 20 MG TABLET PO SCH (18:00)
[2018-10-18] MEDS ORDERED: *HR* Warfarin 10 MG TABLET PO ONE (18:00)
[2018-10-18] MEDS ORDERED: Warfarin perPT PO PRN (18:00)
[2018-10-18] MEDS: Lurasidone 20 MG TABLET PO SCH (20:25)
[2018-10-18] MEDS ORDERED: Gabapentin 300 MG CAPSULE PO SCH (21:00)
[2018-10-19 06:11] LABS: INR 2.7; Prothrombin Time 30.7 Seconds (9.4-12.1)
[2018-10-19] MEDS: Aspirin Enteric Coated 81 MG Tablet PO SCH (09:35)
[2018-10-19] MEDS: *HR* LORazepam 1 MG TABLET PO SCH ×2 (09:36→13:20)
[2018-10-19] MEDS: Baclofen 10 MG TABLET PO SCH ×2 (09:37→13:20)
[2018-10-19] MEDS: BuPROPion XL (24 HR) 150 MG TABLET PO SCH (09:37)
[2018-10-19] MEDS: Gabapentin 300 MG CAPSULE PO SCH ×2 (09:37→13:20)
[2018-10-19] MEDS: *HR* HYDROmorphone 2 MG TABLET PO PRN (09:56)
[2018-10-19 10:43] VITALS: BP 116/76
--- NOTE | 2018-10-19 11:56 | Discharge Summary ---
- NOTES TO OUTPATIENT PROVIDER Notes to Outpatient Provider: Therapeutic INR-placed on heparin and bridged with Coumadin-INR on discharge is 2.7 home health will check INR Wednesday and follow-up with Coumadin clinic on Wednesday. She will be sent home with Coumadin 7.5 mg 4 days 5 mg 3 days Orders not resulted at time of discharge: Pending orders 10/19/18 17:00 Heparin anti-factor XA UFH [COAG] Timed 10/20/18 04:00 INR/PT [Prothrombin Time INR] [COAG] AM 0400 10/21/18 04:00 INR/PT [Prothrombin Time INR] [COAG] AM 0400 Date of Encounter: 10/19/18 Time of Encounter: 11:48 - Discharge Diagnosis (1) Marfans syndrome Priority: Secondary Status: Chronic (2) H/O mitral valve replacement with mechanical valve Priority: Secondary Status: Chronic (3) Atrial flutter Priority: Secondary Status: Acute Qualifiers: Atrial flutter type: unspecified Qualified Code(s): I48.92 - Unspecified atrial flutter (4) H/O mechanical aortic valve replacement Priority: Primary Status: Acute (5) GERD (gastroesophageal reflux disease) Priority: Secondary Status: Acute Qualifiers: Esophagitis presence: without esophagitis Qualified Code(s): K21.9 - Gastro-esophageal reflux disease without esophagitis (6) Supratherapeutic INR Priority: Secondary Status: Acute Hospital course: Ms. Albert is a 48 year old female past medical history of Marfan syndrome status post left upper lobectomy secondary to blebs and mechanical aortic valve (atrial fib/flutter ) atrial fibrillation/flutter-she was notified for Coumadin clinic her INR was 1.5. Repeat INR in ED was 1.7 rest of labs were unremarkable patient was admitted-previous history of thrombosis valves in the past with subtherapeutic INR and placed on heparin and bridged with Coumadin. She received heparin drip for 2 days and her INR improved to 2.7 today. Cardiology recommending goal INR 2.5-3.5. Patient will be discharged home on Coumadin 7.5 mg for 4 days and 5 mg 3 days she will have home health check her INR on Wednesday (Coumadin clinic is closed due to holiday) and recheck with the Coumadin clinic on Wednesday she is hemodynamically stable at this time denies any chest pain or shortness of breath. Advised patient concerning follow-ups verbalized understanding. - Time Spent with Patient Total time spent providing and/or coordinating discharge services: - Discharge Medications Home Medications: Aspirin [Adult Low Dose Aspirin EC] 81 mg PO DAILY 12/26/15 [History] Baclofen 20 mg PO QID 12/26/15 [History] Escitalopram [Lexapro] 10 mg PO QAM 12/26/15 [History] Gabapentin [Neurontin] 900 mg PO HS 12/26/15 [History] Hydromorphone HCl [Dilaudid] 2 mg PO QID PRN 12/26/15 [History] LORazepam [Ativan] 1 mg PO QID 12/26/15 [History] Melatonin [Melatin] 3 mg PO HS PRN 06/06/16 [History] Vitamin E Acid Succinate [Vitamin E] 1 tab PO BID #180 tab 10/20/16 [Rx] Lurasidone [Latuda] 20 mg PO QPM 05/19/17 [History] Bupropion HCl [Wellbutrin Xl] 300 mg PO DAILY 12/06/17 [History] Dicyclomine [Bentyl] 10 mg PO QID PRN 12/06/17 [History] Ondansetron [Zofran ODT] 8 mg SL Q4HR PRN 12/06/17 [History] Albuterol Sulfate [Ventolin Hfa] 2 puff IH Q4H PRN 03/07/18 [History] Metoprolol [Lopressor] 12.5 mg PO BID 05/12/18 [History] Omeprazole [PriLOSEC] 40 mg PO DAILY 07/07/18 [History] Warfarin Sodium 5 mg PO FRSA 07/07/18 [History] Warfarin Sodium 7.5 mg PO SUWETH 07/07/18 [History] Gabapentin [Neurontin] 300 mg PO TID 10/17/18 [History] Warfarin Sodium 10 mg PO MOTU 10/17/18 [History] Allergies/Adverse Reactions: Allergy/AdvReac Type Severity Reaction Status Date / Time levofloxacin [From Levaquin] AdvReac Intermediate See Verified 12/06/17 08:34 Comments acetaminophen [From Vicodin] AdvReac Hives Verified 06/02/18 10:25 aripiprazole [From Abilify] AdvReac Hives Verified 06/02/18 10:25 clarithromycin [From Biaxin] AdvReac See Verified 03/07/18 20:19 Comments hydrocodone [From Vicodin] AdvReac Hives Verified 06/02/18 10:25 Date of admission: 10/18/18 11:49 Primary care physician: Clifford Salazar DO Discharging clinician: Angela Stoll Anticipated date of discharge: 10/19/18 - Constitutional Vitals: Temp Pulse Resp BP Pulse Ox 97.9 F 91 12 116/76 96 10/19/18 10:38 10/19/18 10:38 10/19/18 10:38 10/19/18 10:38 10/19/18 10:38 General appearance: Present: A&O X 3 Exam: . - Head Head exam: Present: atraumatic, normocephalic - Eye Eye exam: Present: PERRL, conjuntiva pink, sclera anicteric Pupils: Present: PERRL - Neck Neck exam general surgery: Present: supple, trachea midline. Absent: lymphadenopathy - Respiratory Respiratory exam: Present: CTAB. Absent: accessory muscle use, rales, rhonchi, wheezes - Cardiovascular Cardiovascular exam: Present: clicks, RRR, +S1, +S2. Absent: diastolic murmur, gallop, rubs, systolic murmur - GI/Abdominal GI/Abdominal exam: Present: normal bowel sounds, soft, no peritoneal signs. Absent: distended, tenderness - Extremities Exam Extremities exam: Present: warm, radial pulses palpable and symmetrical. Absent: calf tenderness, cyanotic, pedal edema - Neurological Exam Neurological exam: Present: CN II-XII intact, oriented X3, no focal deficits. Absent: pronater drift, facial droop, speech deficit - Skin Skin exam: Present: dry, intact - Patient Status Disposition: Home Health Service Condition: Good Functional capacity at discharge: independent ambulation Overall status at discharge: patient is back to baseline - Discharge Instructions Instructions: Atrial Flutter (DC) Follow Up With: Dean Salazar DO [Primary Care Provider] - 10/25/18 2:30 pm () Sunshine Rosario MD [Partnered Physician] - 11/16/18 2:50 pm - Diet and Activity Activity: resume usual activities as tolerated Diet: advance to your usual diet
--- NOTE | 2018-10-19 12:28 | Physician Discharge Referral ---
Home Health/Hosp Referral Info Transfer to: Home Health Attending Provider: Eran Provider in Charge Post Discharge: PCP - Diagnosis (1) Marfans syndrome Priority: Secondary Status: Chronic (2) H/O mitral valve replacement with mechanical valve Priority: Secondary Status: Chronic (3) Atrial flutter Priority: Secondary Status: Acute (4) H/O mechanical aortic valve replacement Priority: Secondary Status: Acute (5) GERD (gastroesophageal reflux disease) Priority: Secondary Status: Acute (6) Subtherapeutic anticoagulation Priority: Primary Status: Acute - Respiratory Orders Smoking Cessation: Smoking cessation has been advised. For more information, call the [place] [employer] Quit Line at 3-014-VKQL-NOW. - Services Needed Following services are medically necessary services: Nursing Other Treatments: PT/INR -10/21/[address] Del Angel [phone] - Transfer Medications Home Medications: Aspirin [Adult Low Dose Aspirin EC] 81 mg PO DAILY 12/26/15 [History] Baclofen 20 mg PO QID 12/26/15 [History] Escitalopram [Lexapro] 10 mg PO QAM 12/26/15 [History] Gabapentin [Neurontin] 900 mg PO HS 12/26/15 [History] Hydromorphone HCl [Dilaudid] 2 mg PO QID PRN 12/26/15 [History] LORazepam [Ativan] 1 mg PO QID 12/26/15 [History] Melatonin [Melatin] 3 mg PO HS PRN 06/06/16 [History] Vitamin E Acid Succinate [Vitamin E] 1 tab PO BID #180 tab 10/20/16 [Rx] Lurasidone [Latuda] 20 mg PO QPM 05/19/17 [History] Bupropion HCl [Wellbutrin Xl] 300 mg PO DAILY 12/06/17 [History] Dicyclomine [Bentyl] 10 mg PO QID PRN 12/06/17 [History] Ondansetron [Zofran ODT] 8 mg SL Q4HR PRN 12/06/17 [History] Albuterol Sulfate [Ventolin Hfa] 2 puff IH Q4H PRN 03/07/18 [History] Metoprolol [Lopressor] 12.5 mg PO BID 05/12/18 [History] Omeprazole [PriLOSEC] 40 mg PO DAILY 07/07/18 [History] Warfarin Sodium 5 mg PO FRSA 07/07/18 [History] Warfarin Sodium 7.5 mg PO SUWETH 07/07/18 [History] Gabapentin [Neurontin] 300 mg PO TID 10/17/18 [History] Warfarin Sodium 10 mg PO MOTU 10/17/18 [History] Allergies/Adverse Reactions: Allergy/AdvReac Type Severity Reaction Status Date / Time levofloxacin [From Levaquin] AdvReac Intermediate See Verified 12/06/17 08:34 Comments acetaminophen [From Vicodin] AdvReac Hives Verified 06/02/18 10:25 aripiprazole [From Abilify] AdvReac Hives Verified 06/02/18 10:25 clarithromycin [From Biaxin] AdvReac See Verified 03/07/18 20:19 Comments hydrocodone [From Vicodin] AdvReac Hives Verified 06/02/18 10:25 Certification: Further, I certify that my clinical findings support that this patient is homebound (i.e. absences from home require considerable and taxing effort and are for medical reasons or hindu services or infrequently or short duration when for other reasons) because: Homebound Reason: Patient requires assistance of a person or device to safely leave home (Patient requires close monitoring of INR due to history of 2 mechanical bowels and thromboses related to low INR. Coumadin clinic is closed due to holiday will need close monitoring at home) Attestation: My signature below is to certify that this patient is under my care and that I, or nurse practitioner, or a physician's assistant oceanographer working with me, has a f inocencio-to-face encounter with this patient.
[2018-10-19] MEDS ORDERED: *HR* Warfarin 5 MG TABLET PO ONE (18:00)
== END 2018-10-19 13:54 | disposition home health service (06) | DRG 948 ==
LOC: EMEROOARM 17:38 → 3BNU 17:38
PROVIDERS: ADMIT Pediatrics; ATTEND Pediatrics

== ENCOUNTER 2019-06-09 11:54 | Inpatient (IN) ==
[2019-06-09] MEDS ORDERED: *HR* Heparin 5,000 UNIT/ML VIAL IVP ONE (12:01)
[2019-06-09] MEDS ORDERED: *HR* Heparin 5,000 UNIT/ML VIAL IVP PRN ×2 (12:01)
[2019-06-09 13:39] LABS: Hematocrit 34.8 % (35.3-44.9); Hemoglobin 10.9 g/dL (11.5-15.4); Mean Corpuscular HGB Conc 31.3 g/dL (31.6-35.5); Mean Corpuscular Hemoglobin 26.1 pg (28.0-33.3); Mean Corpuscular Volume 83.3 fL (83.0-100.0); Mean Platelet Volume 10.3 fL (9.4-12.4); Platelet Count 257 K/mcL (140-400); Red Blood Count 4.18 M/mcL (3.82-4.97); Red Cell Distribution Width 14.5 % (11.5-14.5); White Blood Count 5.3 K/mcL (4.3-11.1)
[2019-06-09] MEDS: Heparin 25,000 UNIT/250 ML D5W 25,000 UNIT/250 ML IV.SOLN IVC SCH ×2 (15:12→22:52)
[2019-06-09] MEDS: Baclofen 10 MG TABLET PO SCH ×2 (15:12→20:31)
[2019-06-09] MEDS: *HR* LORazepam 1 MG TABLET PO SCH ×2 (15:12→20:31)
[2019-06-09] MEDS: Gabapentin 300 MG CAPSULE PO SCH ×2 (17:30→20:31)
[2019-06-09] MEDS: *HR* HYDROmorphone 2 MG TABLET PO PRN (17:31)
[2019-06-09] MEDS: Lurasidone 20 MG TABLET PO SCH (17:31)
[2019-06-09] MEDS ORDERED: Ondansetron 4 MG/2 ML VIAL IVP ONE (21:37)
[2019-06-10] MEDS: *HR* HYDROmorphone 2 MG TABLET PO PRN ×4 (03:44→21:35)
[2019-06-10 04:05] LABS: Hematocrit 31.7 % (35.3-44.9); Hemoglobin 10.1 g/dL (11.5-15.4)
[2019-06-10 04:14] LABS: INR 2.2; Prothrombin Time 24.9 Seconds (9.4-12.1)
[2019-06-10] MEDS ORDERED: Baclofen 10 MG TABLET PO SCH (04:15)
[2019-06-10] MEDS: Baclofen 10 MG TABLET PO SCH ×4 (04:22→17:52)
[2019-06-10 08:06] LABS: Alanine Aminotransferase 12 Units/L (7-52); Albumin 3.7 g/dL (3.5-5.7); Albumin/Globulin Ratio 1.5 (1.1-2.2); Alkaline Phosphatase 92 Units/L (34-104); Aspartate Amino Transferase 14 Units/L (13-39); BUN/Creatinine Ratio 16 (6-26); Bilirubin,Total 0.4 mg/dL (0.3-1.0); Blood Urea Nitrogen 18 mg/dL (6-20); Calcium 9.2 mg/dL (8.6-10.3); Carbon Dioxide 25 mEq/L (23-29); Chloride 104 mEq/L (98-107); Globulin 2.5 g/dL (2.4-3.5); Glucose 96 mg/dL (70-105); Osmolality,Calculated 290 (280-300); Phosphorous 4.6 mg/dL (2.7-4.5); Potassium 4.1 mEq/L (3.5-5.1); Sodium 139 mEq/L (136-145); Total Protein 6.2 g/dL (6.4-8.9); eGFR For African Americans > 60 (> 60); eGFR For Non-African Americans 53 (> 60)
[2019-06-10 08:17] LABS: Mean Corpuscular HGB Conc 30.9 g/dL (31.6-35.5); Mean Corpuscular Hemoglobin 25.4 pg (28.0-33.3); Mean Corpuscular Volume 82.4 fL (83.0-100.0); Platelet Count 242 K/mcL (140-400); Red Blood Count 3.97 M/mcL (3.82-4.97); Red Cell Distribution Width 14.4 % (11.5-14.5); White Blood Count 5.4 K/mcL (4.3-11.1)
[2019-06-10] MEDS: methIMAzole 5 MG TABLET PO SCH (08:49)
[2019-06-10] MEDS: BuPROPion XL (24 HR) 150 MG TABLET PO SCH (08:49)
[2019-06-10] MEDS: Gabapentin 300 MG CAPSULE PO SCH ×4 (08:49→21:34)
[2019-06-10] MEDS: *HR* LORazepam 1 MG TABLET PO SCH ×4 (08:49→21:34)
[2019-06-10 08:53] LABS: % Iron Saturation 9 % (15-50); Iron 28 mcg/dL (50-170); Transferrin 229 mg/dL (203-362)
[2019-06-10 09:10] LABS: Ferritin 9 ng/mL (10-120)
[2019-06-10] MEDS ORDERED: NON-FORMULARY MEDICATION 1 EACH EACH (Ondansetron [Zofran Odt] 8 MG) SL PRN (13:38)
[2019-06-10] MEDS: Ondansetron ODT 4 MG TAB.RAPDIS SL PRN ×2 (13:56→21:35)
[2019-06-10] MEDS: Pantoprazole 40 MG VIAL IVP SCH (15:06)
[2019-06-10] MEDS: 0.9 % Sodium Chloride 1,000 ML IVC SCH (15:06)
[2019-06-10] MEDS: *HR* Promethazine 25 MG/ML VIAL IVP PRN (17:50)
[2019-06-10] MEDS: Lurasidone 20 MG TABLET PO SCH (17:51)
[2019-06-10] MEDS: Heparin 25,000 UNIT/250 ML D5W 25,000 UNIT/250 ML IV.SOLN IVC SCH (18:59)
[2019-06-11] MEDS: Ondansetron ODT 4 MG TAB.RAPDIS SL PRN ×2 (01:35→09:10)
[2019-06-11 05:49] LABS: Hematocrit 32.5 % (35.3-44.9); Mean Corpuscular HGB Conc 30.8 g/dL (31.6-35.5); Mean Corpuscular Hemoglobin 25.7 pg (28.0-33.3); Mean Corpuscular Volume 83.5 fL (83.0-100.0); Mean Platelet Volume 9.7 fL (9.4-12.4); Platelet Count 229 K/mcL (140-400); Red Blood Count 3.89 M/mcL (3.82-4.97); Red Cell Distribution Width 14.5 % (11.5-14.5); White Blood Count 4.6 K/mcL (4.3-11.1)
[2019-06-11 06:00] LABS: INR 1.8; Prothrombin Time 20.5 Seconds (9.4-12.1)
[2019-06-11 06:11] LABS: Alanine Aminotransferase 10 Units/L (7-52); Albumin 3.6 g/dL (3.5-5.7); Albumin/Globulin Ratio 1.5 (1.1-2.2); Alkaline Phosphatase 88 Units/L (34-104); Aspartate Amino Transferase 11 Units/L (13-39); BUN/Creatinine Ratio 14 (6-26); Bilirubin,Total 0.4 mg/dL (0.3-1.0); Blood Urea Nitrogen 15 mg/dL (6-20); Calcium 8.9 mg/dL (8.6-10.3); Carbon Dioxide 27 mEq/L (23-29); Chloride 106 mEq/L (98-107); Globulin 2.4 g/dL (2.4-3.5); Glucose 82 mg/dL (70-105); Osmolality,Calculated 288 (280-300); Phosphorous 4.8 mg/dL (2.7-4.5); Potassium 3.9 mEq/L (3.5-5.1); Sodium 139 mEq/L (136-145); eGFR For African Americans > 60 (> 60); eGFR For Non-African Americans 54 (> 60)
[2019-06-11] MEDS: 0.9 % Sodium Chloride 1,000 ML IVC SCH (06:29)
[2019-06-11] MEDS: methIMAzole 5 MG TABLET PO SCH (09:01)
[2019-06-11] MEDS: BuPROPion XL (24 HR) 150 MG TABLET PO SCH (09:01)
[2019-06-11] MEDS: Baclofen 10 MG TABLET PO SCH ×4 (09:01→20:10)
[2019-06-11] MEDS: Gabapentin 300 MG CAPSULE PO SCH ×4 (09:02→20:10)
[2019-06-11] MEDS: Pantoprazole 40 MG VIAL IVP SCH (09:02)
[2019-06-11] MEDS: *HR* LORazepam 1 MG TABLET PO SCH ×4 (09:02→20:10)
[2019-06-11] MEDS: *HR* HYDROmorphone 2 MG TABLET PO PRN ×3 (09:18→22:44)
[2019-06-11] MEDS: *HR* Promethazine 25 MG/ML VIAL IVP PRN ×2 (10:47→18:24)
[2019-06-11] MEDS: Heparin 25,000 UNIT/250 ML D5W 25,000 UNIT/250 ML IV.SOLN IVC SCH (13:13)
[2019-06-11] MEDS: Lurasidone 20 MG TABLET PO SCH (17:13)
[2019-06-12] MEDS: Acetaminophen 325 MG TABLET PO PRN ×2 (04:16→19:59)
[2019-06-12] MEDS: *HR* Promethazine 25 MG/ML VIAL IVP PRN ×3 (06:23→20:15)
[2019-06-12 06:56] LABS: Hematocrit 33.3 % (35.3-44.9); Hemoglobin 10.4 g/dL (11.5-15.4); Mean Corpuscular HGB Conc 31.2 g/dL (31.6-35.5); Mean Corpuscular Hemoglobin 26.1 pg (28.0-33.3); Mean Corpuscular Volume 83.7 fL (83.0-100.0); Mean Platelet Volume 10.1 fL (9.4-12.4); Platelet Count 224 K/mcL (140-400); Red Blood Count 3.98 M/mcL (3.82-4.97); Red Cell Distribution Width 14.4 % (11.5-14.5); White Blood Count 4.4 K/mcL (4.3-11.1)
[2019-06-12 07:08] LABS: Heparin anti-factor XA UFH 0.32 IU/mL (0.30-0.70)
[2019-06-12 07:09] LABS: INR 1.5; Prothrombin Time 16.9 Seconds (9.4-12.1)
[2019-06-12 07:17] LABS: Albumin 3.8 g/dL (3.5-5.7); Albumin/Globulin Ratio 1.6 (1.1-2.2); Bilirubin,Total 0.4 mg/dL (0.3-1.0); Calcium 9.2 mg/dL (8.6-10.3); Globulin 2.4 g/dL (2.4-3.5); Magnesium 2.1 mg/dL (1.6-2.6); Phosphorous 5.1 mg/dL (2.7-4.5); Total Protein 6.2 g/dL (6.4-8.9)
[2019-06-12] MEDS: Heparin 25,000 UNIT/250 ML D5W 25,000 UNIT/250 ML IV.SOLN IVC SCH (09:24)
[2019-06-12] MEDS: BuPROPion XL (24 HR) 150 MG TABLET PO SCH (09:25)
[2019-06-12] MEDS: *HR* LORazepam 1 MG TABLET PO SCH ×4 (09:26→19:59)
[2019-06-12] MEDS: *HR* HYDROmorphone 2 MG TABLET PO PRN ×2 (09:26→17:24)
[2019-06-12] MEDS: Gabapentin 300 MG CAPSULE PO SCH ×4 (09:26→19:59)
[2019-06-12] MEDS: Baclofen 10 MG TABLET PO SCH ×4 (09:26→19:59)
[2019-06-12] MEDS: methIMAzole 5 MG TABLET PO SCH (09:26)
[2019-06-12] MEDS ORDERED: SODIUM CHLORIDE/NAHCO3/KCL/PEG 4,000 ML SOLN.RECON PO ONE ×2 (10:54→13:15)
[2019-06-12] MEDS: Lurasidone 20 MG TABLET PO SCH (17:21)
[2019-06-13 05:14] LABS: Hemoglobin 10.5 g/dL (11.5-15.4); Mean Corpuscular HGB Conc 30.9 g/dL (31.6-35.5); Mean Corpuscular Hemoglobin 25.7 pg (28.0-33.3); Mean Corpuscular Volume 83.3 fL (83.0-100.0); Mean Platelet Volume 10.1 fL (9.4-12.4); Platelet Count 228 K/mcL (140-400); Red Blood Count 4.08 M/mcL (3.82-4.97); Red Cell Distribution Width 14.3 % (11.5-14.5); White Blood Count 4.3 K/mcL (4.3-11.1)
[2019-06-13 05:19] LABS: INR 1.4; Prothrombin Time 16.1 Seconds (9.4-12.1)
[2019-06-13 05:32] LABS: Alanine Aminotransferase 10 Units/L (7-52); Albumin 3.9 g/dL (3.5-5.7); Albumin/Globulin Ratio 1.6 (1.1-2.2); Alkaline Phosphatase 91 Units/L (34-104); Aspartate Amino Transferase 14 Units/L (13-39); BUN/Creatinine Ratio 13 (6-26); Bilirubin,Total 0.5 mg/dL (0.3-1.0); Blood Urea Nitrogen 13 mg/dL (6-20); Calcium 9.3 mg/dL (8.6-10.3); Carbon Dioxide 27 mEq/L (23-29); Chloride 103 mEq/L (98-107); Globulin 2.5 g/dL (2.4-3.5); Glucose 91 mg/dL (70-105); Magnesium 1.9 mg/dL (1.6-2.6); Osmolality,Calculated 288 (280-300); Phosphorous 4.8 mg/dL (2.7-4.5); Potassium 3.8 mEq/L (3.5-5.1); Sodium 139 mEq/L (136-145); Total Protein 6.4 g/dL (6.4-8.9); eGFR For African Americans > 60 (> 60); eGFR For Non-African Americans 60 (> 60)
[2019-06-13] MEDS: Heparin 25,000 UNIT/250 ML D5W 25,000 UNIT/250 ML IV.SOLN IVC SCH ×2 (06:18→20:53)
[2019-06-13] MEDS ORDERED: *HR* Heparin 5,000 UNIT/ML VIAL IVP PRN ×2 (08:58)
[2019-06-13] MEDS ORDERED: *HR* Enoxaparin 100 MG/ML SYRINGE SQ SCH (09:00)
[2019-06-13] MEDS ORDERED: *HR* LORazepam 2 MG/ML VIAL IVP ONE (09:25)
[2019-06-13] MEDS ORDERED: *HR* LORazepam 1 MG TABLET PO PRN (13:10)
[2019-06-13] MEDS ORDERED: Melatonin 3 MG TABLET PO PRN (13:10)
[2019-06-13] MEDS: *HR* Promethazine 25 MG/ML VIAL IVP PRN (13:20)
[2019-06-13] MEDS: *HR* LORazepam 1 MG TABLET PO SCH ×3 (13:26→20:53)
[2019-06-13] MEDS: Gabapentin 300 MG CAPSULE PO SCH ×3 (13:27→20:53)
[2019-06-13] MEDS: Baclofen 10 MG TABLET PO SCH ×4 (13:27→20:53)
[2019-06-13] MEDS ORDERED: *HR* FentaNYL (PF) 100 MCG/2 ML VIAL ONE (13:41)
[2019-06-13] MEDS ORDERED: *HR* Propofol 200 MG/20 ML VIAL IVP ONE ×2 (13:42)
[2019-06-13] MEDS: methIMAzole 5 MG TABLET PO SCH (15:43)
[2019-06-13] MEDS: BuPROPion XL (24 HR) 150 MG TABLET PO SCH (15:44)
[2019-06-13] MEDS ORDERED: Warfarin perPT PO PRN (18:00)
[2019-06-13] MEDS ORDERED: *HR* Warfarin 7.5 MG TABLET PO ONE (18:00)
[2019-06-13] MEDS: Aspirin Enteric Coated 81 MG Tablet PO SCH (18:05)
[2019-06-13] MEDS: Lurasidone 20 MG TABLET PO SCH (18:06)
[2019-06-13] MEDS: *HR* HYDROmorphone 2 MG TABLET PO PRN (18:08)
[2019-06-13 20:12] LABS: Hematocrit 33.9 % (35.3-44.9); Hemoglobin 10.6 g/dL (11.5-15.4); Mean Corpuscular HGB Conc 31.3 g/dL (31.6-35.5); Mean Corpuscular Hemoglobin 25.6 pg (28.0-33.3); Mean Corpuscular Volume 81.9 fL (83.0-100.0); Platelet Count 235 K/mcL (140-400); Red Blood Count 4.14 M/mcL (3.82-4.97); Red Cell Distribution Width 14.6 % (11.5-14.5); White Blood Count 5.7 K/mcL (4.3-11.1)
[2019-06-13 20:19] LABS: INR 1.4; Prothrombin Time 15.4 Seconds (9.4-12.1)
[2019-06-13 20:22] LABS: Heparin anti-factor XA UFH 0.01 IU/mL (0.30-0.70)
[2019-06-14 03:39] LABS: Basophils % 0.4 %; Eosinophils # 0.1 K/mcL (0.0-0.6); Eosinophils % 2.6 %; Hemoglobin 10.4 g/dL (11.5-15.4); Immature Granulocytes % 0.2 % (0-4); Lymphocytes # 1.3 K/mcL (0.6-4.6); Lymphocytes % 24.6 %; Mean Corpuscular HGB Conc 31.5 g/dL (31.6-35.5); Mean Corpuscular Hemoglobin 25.7 pg (28.0-33.3); Mean Corpuscular Volume 81.5 fL (83.0-100.0); Monocytes # 0.4 K/mcL (0.0-1.3); Monocytes % 7.5 %; Neutrophils # 3.4 K/mcL (1.6-8.9); Platelet Count 237 K/mcL (140-400); Red Blood Count 4.05 M/mcL (3.82-4.97); Red Cell Distribution Width 14.6 % (11.5-14.5); Segmented Neutrophils % 64.7 %; White Blood Count 5.3 K/mcL (4.3-11.1)
[2019-06-14 03:47] LABS: INR 1.4; Prothrombin Time 15.6 Seconds (9.4-12.1)
[2019-06-14 03:49] LABS: BUN/Creatinine Ratio 11 (6-26); Blood Urea Nitrogen 11 mg/dL (6-20); Calcium 9.2 mg/dL (8.6-10.3); Carbon Dioxide 24 mEq/L (23-29); Chloride 107 mEq/L (98-107); Glucose 96 mg/dL (70-105); Magnesium 1.8 mg/dL (1.6-2.6); Osmolality,Calculated 287 (280-300); Potassium 3.8 mEq/L (3.5-5.1); Sodium 139 mEq/L (136-145); eGFR For African Americans > 60 (> 60); eGFR For Non-African Americans 58 (> 60)
[2019-06-14] MEDS: Heparin 25,000 UNIT/250 ML D5W 25,000 UNIT/250 ML IV.SOLN IVC SCH ×2 (06:38→12:23)
[2019-06-14] MEDS: *HR* LORazepam 1 MG TABLET PO SCH ×4 (08:33→20:34)
[2019-06-14] MEDS: Gabapentin 300 MG CAPSULE PO SCH ×5 (08:33→20:35)
[2019-06-14] MEDS: *HR* Promethazine 25 MG/ML VIAL IVP PRN ×2 (08:42→16:36)
[2019-06-14] MEDS: methIMAzole 5 MG TABLET PO SCH (08:44)
[2019-06-14] MEDS: BuPROPion XL (24 HR) 150 MG TABLET PO SCH (08:44)
[2019-06-14] MEDS: Baclofen 10 MG TABLET PO SCH ×4 (08:44→20:34)
[2019-06-14] MEDS ORDERED: NON-FORMULARY MEDICATION 1 EACH EACH (Bupropion Hcl [Wellbutrin Xl] 300 MG) PO SCH (09:00)
[2019-06-14] MEDS ORDERED: NON-FORMULARY MEDICATION 1 EACH EACH (Omeprazole [Prilosec] 40 MG) PO SCH (09:00)
[2019-06-14] MEDS ORDERED: methIMAzole 5 MG TABLET PO SCH (09:00)
[2019-06-14] MEDS: *HR* HYDROmorphone 2 MG TABLET PO PRN ×3 (10:05→22:34)
[2019-06-14] MEDS: Aspirin Enteric Coated 81 MG Tablet PO SCH (16:37)
[2019-06-14] MEDS: Lurasidone 20 MG TABLET PO SCH (16:37)
[2019-06-14] MEDS ORDERED: *HR* Warfarin 10 MG TABLET PO SCH (18:00)
[2019-06-14] MEDS ORDERED: *HR* Warfarin 10 MG TABLET PO ONE (18:00)
[2019-06-14] MEDS ORDERED: *HR* Warfarin 7.5 MG TABLET PO ONE (18:00)
[2019-06-15] MEDS: Acetaminophen 325 MG TABLET PO PRN (00:39)
[2019-06-15 05:22] LABS: Basophils % 0.6 %; Eosinophils # 0.2 K/mcL (0.0-0.6); Eosinophils % 3.9 %; Hematocrit 35.2 % (35.3-44.9); Hemoglobin 10.8 g/dL (11.5-15.4); Immature Granulocytes % 0.2 % (0-4); Lymphocytes # 1.8 K/mcL (0.6-4.6); Lymphocytes % 36.6 %; Mean Corpuscular HGB Conc 30.7 g/dL (31.6-35.5); Mean Corpuscular Volume 84.8 fL (83.0-100.0); Mean Platelet Volume 10.5 fL (9.4-12.4); Monocytes # 0.4 K/mcL (0.0-1.3); Monocytes % 8.5 %; Neutrophils # 2.4 K/mcL (1.6-8.9); Platelet Count 217 K/mcL (140-400); Red Blood Count 4.15 M/mcL (3.82-4.97); Red Cell Distribution Width 14.8 % (11.5-14.5); Segmented Neutrophils % 50.2 %; White Blood Count 4.8 K/mcL (4.3-11.1)
[2019-06-15 05:31] LABS: INR 1.8; Prothrombin Time 20.9 Seconds (9.4-12.1)
[2019-06-15] MEDS: Heparin 25,000 UNIT/250 ML D5W 25,000 UNIT/250 ML IV.SOLN IVC SCH (08:29)
[2019-06-15] MEDS: *HR* LORazepam 1 MG TABLET PO SCH ×3 (08:30→20:47)
[2019-06-15] MEDS: Baclofen 10 MG TABLET PO SCH ×4 (08:30→20:46)
[2019-06-15] MEDS: BuPROPion XL (24 HR) 150 MG TABLET PO SCH (08:30)
[2019-06-15] MEDS: Gabapentin 300 MG CAPSULE PO SCH ×4 (08:31→20:47)
[2019-06-15] MEDS: methIMAzole 5 MG TABLET PO SCH (08:31)
[2019-06-15] MEDS: *HR* HYDROmorphone 2 MG TABLET PO PRN ×3 (09:36→21:00)
[2019-06-15] MEDS: *HR* Promethazine 25 MG/ML VIAL IVP PRN (09:36)
[2019-06-15] MEDS: Lurasidone 20 MG TABLET PO SCH (15:33)
[2019-06-15] MEDS: Aspirin Enteric Coated 81 MG Tablet PO SCH (15:33)
[2019-06-15] MEDS ORDERED: *HR* Warfarin 10 MG TABLET PO ONE (18:00)
[2019-06-15 18:29] VITALS: BP 112/60
[2019-06-16] MEDS: *HR* Promethazine 25 MG/ML VIAL IVP PRN ×2 (04:14→09:39)
[2019-06-16] MEDS: *HR* HYDROmorphone 2 MG TABLET PO PRN ×2 (04:14→09:27)
[2019-06-16] MEDS: Heparin 25,000 UNIT/250 ML D5W 25,000 UNIT/250 ML IV.SOLN IVC SCH (04:57)
[2019-06-16 05:27] LABS: INR 2.4; Prothrombin Time 27.7 Seconds (9.4-12.1)
[2019-06-16] MEDS: *HR* LORazepam 1 MG TABLET PO SCH (09:27)
[2019-06-16] MEDS: BuPROPion XL (24 HR) 150 MG TABLET PO SCH (09:27)
[2019-06-16] MEDS: Gabapentin 300 MG CAPSULE PO SCH (09:27)
[2019-06-16] MEDS: Baclofen 10 MG TABLET PO SCH (09:28)
[2019-06-16] MEDS: methIMAzole 5 MG TABLET PO SCH (09:28)
[2019-06-16] MEDS ORDERED: *HR* Warfarin 7.5 MG TABLET PO ONE (18:00)
== END 2019-06-16 10:25 | disposition home or self-care (01) | DRG 392 ==
LOC: 3BNU → SUATTDRO 11:54 → EDSTATUS 06-13 13:00
PROVIDERS: ADMIT Internal Medicine; ATTEND Internal Medicine
PROC: ENDOEBX (2019-06-13 13:00)

== ENCOUNTER 2019-09-04 15:04 | Inpatient (IN) ==
[2019-09-04] MEDS ORDERED: *HR* Heparin 5,000 UNIT/ML VIAL IVP ONE (15:32)
[2019-09-04] MEDS ORDERED: *HR* Heparin 5,000 UNIT/ML VIAL IVP PRN ×2 (15:32)
[2019-09-04 16:08] LABS: Basophils # 0.1 K/mcL (0.0-0.2); Basophils % 0.9 %; Eosinophils # 0.3 K/mcL (0.0-0.6); Eosinophils % 5.3 %; Hematocrit 35.7 % (35.3-44.9); Hemoglobin 11.4 g/dL (11.5-15.4); Immature Granulocytes % 0.3 % (0-4); Lymphocytes # 1.5 K/mcL (0.6-4.6); Lymphocytes % 23.7 %; Mean Corpuscular HGB Conc 31.9 g/dL (31.6-35.5); Mean Corpuscular Hemoglobin 27.7 pg (28.0-33.3); Mean Corpuscular Volume 86.7 fL (83.0-100.0); Mean Platelet Volume 9.9 fL (9.4-12.4); Monocytes # 0.5 K/mcL (0.0-1.3); Monocytes % 8.5 %; Neutrophils # 3.9 K/mcL (1.6-8.9); Platelet Count 231 K/mcL (140-400); Red Blood Count 4.12 M/mcL (3.82-4.97); Red Cell Distribution Width 15.8 % (11.5-14.5); Segmented Neutrophils % 61.3 %; White Blood Count 6.4 K/mcL (4.3-11.1)
[2019-09-04 16:21] LABS: INR 1.4; Prothrombin Time 16.1 Seconds (9.4-12.1)
[2019-09-04 16:23] LABS: Activated Partial Thrombo Time 31.8 Seconds (26.0-36.0)
[2019-09-04 16:33] LABS: BUN/Creatinine Ratio 18 (6-26); Blood Urea Nitrogen 17 mg/dL (6-20); Calcium 9.1 mg/dL (8.6-10.3); Carbon Dioxide 25 mEq/L (23-29); Chloride 104 mEq/L (98-107); Glucose 75 mg/dL (70-105); Osmolality,Calculated 286 (280-300); Potassium 4.3 mEq/L (3.5-5.1); Sodium 138 mEq/L (136-145); eGFR For African Americans > 60 (> 60); eGFR For Non-African Americans > 60 (> 60)
[2019-09-04] MEDS: Heparin 25,000 UNIT/250 ML D5W 25,000 UNIT/250 ML IV.SOLN IVC SCH (17:09)
[2019-09-04] MEDS ORDERED: Naloxone 0.4 MG/ML INJ IVP PRN (17:18)
[2019-09-04] MEDS ORDERED: Melatonin 3 MG TABLET PO PRN (17:25)
[2019-09-04] MEDS ORDERED: Ondansetron ODT 4 MG TAB.RAPDIS SL PRN (17:25)
[2019-09-04] MEDS ORDERED: Warfarin perPT PO PRN (18:00)
[2019-09-04] MEDS: Aspirin Enteric Coated 81 MG Tablet PO SCH (18:37)
[2019-09-04] MEDS ORDERED: *HR* Warfarin 5 MG TABLET PO ONE (18:45)
[2019-09-04] MEDS: *HR* LORazepam 1 MG TABLET PO SCH (20:56)
[2019-09-04] MEDS: Baclofen 10 MG TABLET PO SCH (20:57)
[2019-09-04] MEDS: Gabapentin 300 MG CAPSULE PO SCH (20:59)
[2019-09-04] MEDS: *HR* HYDROmorphone 2 MG TABLET PO SCH (22:02)
[2019-09-05 04:46] LABS: INR 1.4; Prothrombin Time 15.7 Seconds (9.4-12.1)
[2019-09-05] MEDS: Baclofen 10 MG TABLET PO SCH ×4 (07:38→21:54)
[2019-09-05] MEDS: methIMAzole 5 MG TABLET PO SCH (07:38)
[2019-09-05] MEDS: *HR* HYDROmorphone 2 MG TABLET PO SCH ×4 (07:40→21:54)
[2019-09-05] MEDS: *HR* LORazepam 1 MG TABLET PO SCH ×4 (07:40→21:54)
[2019-09-05] MEDS: BuPROPion XL (24 HR) 150 MG TABLET PO SCH (07:40)
[2019-09-05] MEDS: Gabapentin 300 MG CAPSULE PO SCH ×4 (07:44→21:53)
[2019-09-05] MEDS: Heparin 25,000 UNIT/250 ML D5W 25,000 UNIT/250 ML IV.SOLN IVC SCH (12:09)
[2019-09-05] MEDS: CARIPRAZINE 1.5 MG PO SCH (14:36)
[2019-09-05] MEDS: Aspirin Enteric Coated 81 MG Tablet PO SCH (16:48)
[2019-09-05] MEDS ORDERED: *HR* Warfarin 10 MG TABLET PO ONE (18:00)
[2019-09-05] MEDS ORDERED: Lurasidone 20 MG TABLET PO SCH (22:00)
[2019-09-06 06:24] LABS: INR 1.7; Prothrombin Time 19.7 Seconds (9.4-12.1)
[2019-09-06] MEDS: BuPROPion XL (24 HR) 150 MG TABLET PO SCH (08:06)
[2019-09-06] MEDS: Gabapentin 300 MG CAPSULE PO SCH ×4 (08:07→20:22)
[2019-09-06] MEDS: Baclofen 10 MG TABLET PO SCH ×4 (08:07→20:22)
[2019-09-06] MEDS: *HR* LORazepam 1 MG TABLET PO SCH ×4 (08:07→20:23)
[2019-09-06] MEDS: methIMAzole 5 MG TABLET PO SCH (08:07)
[2019-09-06] MEDS: CARIPRAZINE 1.5 MG PO SCH (08:08)
[2019-09-06] MEDS: *HR* HYDROmorphone 2 MG TABLET PO SCH ×3 (08:14→17:11)
[2019-09-06] MEDS: Heparin 25,000 UNIT/250 ML D5W 25,000 UNIT/250 ML IV.SOLN IVC SCH (11:58)
[2019-09-06] MEDS: Aspirin Enteric Coated 81 MG Tablet PO SCH (17:11)
[2019-09-06] MEDS ORDERED: *HR* Warfarin 10 MG TABLET PO ONE (18:00)
[2019-09-07] MEDS: *HR* HYDROmorphone 2 MG TABLET PO SCH ×2 (00:09→07:12)
[2019-09-07 07:05] LABS: INR 2.7; Prothrombin Time 30.2 Seconds (9.4-12.1)
[2019-09-07] MEDS: BuPROPion XL (24 HR) 150 MG TABLET PO SCH (08:33)
[2019-09-07 08:34] VITALS: BP 112/73
[2019-09-07] MEDS: Baclofen 10 MG TABLET PO SCH (08:34)
[2019-09-07] MEDS: *HR* LORazepam 1 MG TABLET PO SCH (08:37)
[2019-09-07] MEDS: Gabapentin 300 MG CAPSULE PO SCH (08:37)
[2019-09-07] MEDS: methIMAzole 5 MG TABLET PO SCH (08:38)
[2019-09-07] MEDS: CARIPRAZINE 1.5 MG PO SCH (08:39)
== END 2019-09-07 09:59 | disposition home or self-care (01) | DRG 948 ==
LOC: SUATTDRO → EMEROOARM 15:04 → 2ANU 15:04 → SUATTDRO 17:46 → 2ANU 18:01
PROVIDERS: ADMIT Internal Medicine; ATTEND Family Medicine